=== PATIENT | female | born 1965 | race Caucasian/White ===

== ENCOUNTER 2017-09-10 08:16 | Outpatient (RCR) | payer BC, SELFPAY ==
--- NOTE | 2017-09-10 10:33 | BH.SGPN ---
Service Group Progress Note - Session Psychotherapy Session #1 Date Open:: 09/10/17 - 6 group members Time Started:: 09:05 Time Stopped:: 10:05 Targeted Problem #:: 1 Type of Group:: Process Goal of Group:: The goal of today's group was to check-in with client's mood, stressors, and positives, review homework and introduce topic for the day. Client Response/Progress/Benefit:: Client responded well to session, first day in PHP, receptive to peer support. Client reports feeling very anxious today coming to the program. Client shared she was diagnosed with bipolar disorder 18 years ago and has overall been able to cope and manage her symptoms with the help of medication, but recently had a setback. Client shared it's like I forgot how to cope. Client stated she would like to work on reinforcing healthy coping skills and reduce anxiety. Client reported she has few mental health supports which negatively impacts client's functioning as her will tell her to just get over it. Therapist informed client about family sessions offered in the program. Client appeared to benefit from receiving supportive statements from peers and coming to group despite high anxiety. Client to continue PHP to promote mood stability and prevent decompensation. Eye Contact:: Good Motor Activity:: Appropriate Appearance:: Neat Speech:: Appropriate Mood:: Anxious, Dysthymic Affect:: Congruent - client became tearful Thoughts:: Racing, No evidence of hallucinations/delusions noted Staff Interventions:: Therapist used open-ended questions to elicit information about client's current stressors and mood state. Therapist was supportive by using active listening and reflection.
--- NOTE | 2017-09-11 11:20 | BH.SGPN ---
Service Group Progress Note - Session Psychotherapy Session #1 Date Open:: 09/11/17 Time Started:: 09:06 Time Stopped:: 10:06 Targeted Problem #:: 1 Type of Group:: Process Goal of Group:: The goal of today's group was to check-in with client's mood, stressors, and positives, review homework and introduce topic for the day. Client Response/Progress/Benefit:: Client reported she was overwhelmed yesterday because of an arguement she had with her . Client shared she attempted to focus on self-care yesterday by getting a pedicure and hair cut. On her way home she shared she stopped to cone picker food for herself and , but when she got home with the food he was very upset with her for spending the money. Client reported she became very anxious during the arguement so she whent on a walk to help herself calm down. Client able to note she made a positive choice by taking a walk. Progress noted by client utilizing healthy coping skill in yanique moment as well as putting forth effort to focus on self-care. Eye Contact:: Fair Motor Activity:: Restless Appearance:: Casual Speech:: Rapid Mood:: Anxious Affect:: Constricted Thoughts:: Linear, Logical, No evidence of hallucinations/delusions noted Staff Interventions:: Therapist used open-ended questions to elicit information about client's current stressors and mood state. Therapist was supportive by using active listening and reflection.
--- NOTE | 2017-09-11 11:23 | BH.SGPN_ITS ---
Service Group Progress Note - Session Psychotherapy Session #1 Date Open:: 09/11/17 Time Started:: 09:06 Time Stopped:: 10:06 Targeted Problem #:: 1 Type of Group:: Process Goal of Group:: The goal of today's group was to check-in with client's mood, stressors, and positives, review homework and introduce topic for the day. Client Response/Progress/Benefit:: Client reported she was overwhelmed yesterday because of an arguement she had with her . Client shared she attempted to focus on self-care yesterday by getting a pedicure and hair cut. On her way home she shared she stopped to continuous pickling line pickler food for herself and , but when she got home with the food he was very upset with her for spending the money. Client reported she became very anxious during the arguement so she whent on a walk to help herself calm down. Client able to note she made a positive choice by taking a walk. Progress noted by client utilizing healthy coping skill in yanique moment as well as putting forth effort to focus on self- care. Eye Contact:: Fair Motor Activity:: Restless Appearance:: Casual Speech:: Rapid Mood:: Anxious Affect:: Constricted Thoughts:: Linear, Logical, No evidence of hallucinations/delusions noted Staff Interventions:: Therapist used open-ended questions to elicit information about client's current stressors and mood state. Therapist was supportive by using active listening and reflection.
--- NOTE | 2017-09-11 13:37 | BH.SGPN_ITS ---
Service Group Progress Note - Session Psychotherapy Session #2 Date Open:: 09/11/17 - 6 group members Time Started:: 10:18 Time Stopped:: 11:08 Targeted Problem #:: 1 Type of Group:: Illness Management Goal of Group:: To increase understanding of pitfalls and impact can have on mental health Client Response/Progress/Benefit:: Client responded well to session, passive participant at times. Client appeared to connect with the quote, nodding to peers? comments. Client stated pitfalls are barriers to success and bad habits. Client reported depression, unrealistic expectations, and negative thinking can make someone vulnerable to pitfalls. Client reported pitfalls can lead to more severe mental health symptoms, if one does not have awareness of how to overcome them. Client appeared to benefit from gaining awareness of how pitfalls impact mental health. Client?s second day of PHP, to continue to promote emotional regulation and mood stability. Eye Contact:: Good Motor Activity:: Appropriate Appearance:: Neat Speech:: Appropriate Mood:: Anxious Affect:: Constricted Thoughts:: Linear, No evidence of hallucinations/delusions noted Staff Interventions:: Therapist facilitated discussion about pitfalls and assisted group in identifying common pitfalls that can set you back. Therapist led group in an activity to help group understand impact pitfalls can have on oneself and identify strategies that could help you get back on the right path. Therapist provided support by using active listening and providing feedback. Psychotherapy Session #3 Date Open:: 09/11/17 - 6 group members Time Started:: 11:16 Time Stopped:: 12:15 Targeted Problem #:: 1 Type of Group:: Functional Skills Development Goal of Group:: To identify personal pitfalls and what keeps them stuck from moving forward Client Response/Progress/Benefit:: Client responded well to session, active participant. Client identified personal pitfalls of hers as impulsive behavior, no boundaries, avoiding places and people, anxiety, and seeking reassurance from others. Client reported her patterns of self-sabotage, especially with work , continues to keep client stuck. Client was receptive to emotional support given by peers. Client helped the group identify strategies to overcome and prevent pitfalls such as creating a crisis plan, using DDD, being self-aware, and using mindfulness. Client appeared to benefit from increasing awareness of personal pitfalls and identifying strategies to overcome them. Progress noted as client verbalized stressors with peers and challenged unhelpful behaviors. Eye Contact:: Good Motor Activity:: Appropriate Appearance:: Neat Speech:: Appropriate Mood:: Anxious Affect:: Congruent - became tearful Thoughts:: Linear, No evidence of hallucinations/delusions noted Staff Interventions:: Therapist facilitated activity in which group members were given the task to identify personal pitfalls and what keeps them stuck from moving past the pitfall. Therapist provided group members with the homework assignment of identifying strategies that can help them overcome pitfalls.
--- NOTE | 2017-09-12 14:49 | BH.MDN ---
Multi-Disciplinary Note - Note 60-min Individual Time Started:: 12:37 Date: 09/12/17 Eye Contact:: Good Motor Activity:: Appropriate Appearance:: Casual Speech:: Appropriate Mood:: Dysthymic Affect:: Congruent Thoughts:: Linear, Logical, No evidence of hallucinations/delusions noted Time Stopped:: 13:27
--- NOTE | 2017-09-12 14:53 | BH.MDN_ITS ---
Multi-Disciplinary Note - Note 45-min Individual Time Started:: 12:45 Date: 09/10/17 Purpose of session/treatment goals addressed:: The purpose of this session was to begin building rapport with Client as well as gather additional information regarding perception current symptoms, stressors, and means for coping. Another purpose was to begin treatment goal planning. Eye Contact:: Good, Other - Client often averted eye contact when discussing events leading to IOP admission. Motor Activity:: Appropriate Appearance:: Casual, Other - red and tearful throughout Speech:: Rambling Mood:: Anxious, Depressed Affect:: Congruent Thoughts:: Linear, Logical, Racing, No evidence of hallucinations/delusions noted Staff Interventions:: Therapist asked open-ended and clarifying questions to gather information regarding client current symptoms, stressors, identified supports, and current means for coping. Used reflective listening, provided encouragement, and responded empathically as Client discussed circumstances leading to admission. Used motivational-interviewing techniques to begin identifying Client motivations to change and goals for treatment. Provided Client with goal reflection activity to complete as homework. Client Response:: Client responded well to session and reports that her first day in [facility] went better than expected but that she is still adjusting to the group dynamics. Client discussed feelig overwhelmed recently and not knowing what to do to best aid in managing mental health symptoms. She discussed how depression and anxiety manifests for her and the specific symptoms she experiences. Client shared that her depression often includes increased negative thinking, low energy, a lack of enjoyment in activities she previously enjoyed, fleeting thoughts of , and increased sadness. Client further indicated feeling increasingly anxious and on edge following her shift at work which often results in increased irritability towards her . CLient discussed periods of lashing out in which she experiences increased road rage and high-risk behaviors. She discussed the events leading up to referal for admission to the IOP program by Client outpatient psychiatrist, Dr. Hutton. Client shared that this time of year is always a trigger for her as she has experienced multiple losses around this time of year. Client indicated that she believes she has never truly allowed herself to grieve which has impacted her later in life. Client reports engaging in high risk behaviors 1 month ago following a one night affair. Client indicates engaging in a suicidal gesture via putting a gun to her head because of the guilt associated with the affair. She denies any suicide intent and indicates that her kim and her son as preventative factors. Client semi-receptive to discussing gun safety and indicated willingness to keep the gun out of reach and with the safety on. Began treatment goal planning. Omari specifically indicates a desire to improve healthy coping skills and ability to manage her emotions. Risks/Concerns:: Client denies any active suicidal ideations, plan, or intent. Reports that she had fleeting thoughts of one month prior when she engaged in a suicidal gesture via place a gun to her head; however, denied intent at the time indicated wanting to cause the person who she had an affair with emotional distress. CLient reports that her son and kim are major protective factors. She is able to indicate ability to maintain safety. Future- oriented. Client open to discussing gun-safety and shared willingness to place firearm out of reach as well as with the safety on. Progress Toward Goals/Plan:: Client new to IOP program, however appears to be adjusting well to the treatment environment. Client expressed that she is comfortable in the group setting and is feeling less ambivalent towards receiving group therapy. Client indicates enjoying the group activities and openness of the other participants. She expressed plans to continue to engage in the program and is open to trying new ways for managing mental health symptoms. Client indicates main goals for treatment include learning skills for better managing her emotions and coping with feelings of guilt associated with events leading to admission. Time Stopped:: 13:35
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
--- NOTE | 2017-09-12 14:53 | BH.SGPN ---
Service Group Progress Note - Session Psychotherapy Session #3 Date Open:: 09/12/17 Time Started:: 11:23 Time Stopped:: 12:20 Targeted Problem #:: 1 Type of Group:: Functional Skills Development - 6 participants Goal of Group:: To identify the challenges associated with making change and identify positive outcomes that have resulted from changes made in past. Another goal was to identify one change they are willing to make this week. Staff Interventions:: Therapist led group in an activity to help group members recognize the challenges associated with change. Therapist utilized activity as a tool to identify ways to manage changes and adapt to the challenges that ensue. Therapist facilitated group discussion about positive outcomes from change. Therapist helped clients explore changes they are willing to make this week and elicited discussion on the pros and cons of making that change.
--- NOTE | 2017-09-13 09:58 | BH.SGPN_ITS ---
Service Group Progress Note - Session Psychotherapy Session #1 Date Open:: 09/12/17 Time Started:: 09:10 Time Stopped:: 10:00 Type of Group:: Process - 6 group members Goal of Group:: The goal of today's group was to check-in with client's mood, stressors, and positives, and review homework. Client Response/Progress/Benefit:: Active participant in group discussion. Emotion for today is numb. Shared with the group conflict and poor communication. Reports conversations in which she percieves her as being condenscending. She reports several attempts to have conversations based on thier relationship and her emotions and fells that all he does is put me down. She reprots that while this may seem negative, however she is making an effort to be assertive. Group provided support, praise, and feedback which she benefited from. Progress noted as she is not avoiding or being passive in her wants. Will continue in IOP to maintain safety, improve functioning, and stabilze mood. Eye Contact:: Fair Motor Activity:: Restless Appearance:: Casual Speech:: Appropriate Mood:: Anxious, Depressed Affect:: Congruent Thoughts:: Linear, Logical, No evidence of hallucinations/delusions noted Staff Interventions:: Therapist used open-ended questions to elicit information about client's current stressors and mood state. Therapist was supportive by using active listening and reflection. Psychotherapy Session #2 Date Open:: 09/12/17 Time Started:: 10:20 Time Stopped:: 11:10 Type of Group:: Illness Management - 7 group members Goal of Group:: To increase understanding and awareness of emotions connected to change and the impact those emotions can have on change. Client Response/Progress/Benefit:: Active participant in group activity and discussion. Worked with peers in the group to identify common emotions related to change which include; fear, anxiety, lost, torn, enthusiastic, sadness, etc. Able to see the positives to change stating I need change it helps me grow. Responded well to education on the process or stages of change. Benefited from increased awareness and education. Eye Contact:: Fair Motor Activity:: Restless Appearance:: Casual Speech:: Appropriate Mood:: Anxious, Depressed Affect:: Congruent Thoughts:: Linear, Logical, No evidence of hallucinations/delusions noted Staff Interventions:: Therapist facilitated group discussion about change. Therapist led the group in an activity in which the activity was utilized as a tool to increase client?s awareness of emotions connected with change. Therapist led the processing of how each emotion was associated with change. Therapist also educated clients on the stages of change and discussed emotions associated with each stage. Therapist was supportive by providing feedback and using reflective listening.
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
--- NOTE | 2017-09-13 11:37 | BH.NA ---
Physical Data - Vital Signs Pulse Rate: 76 Respiratory Rate: 14 Blood Pressure: 132/83 - Height/Weight Height: 1.78 m Weight:: 123.377 kg Weight in Pounds: 272.0 lbs Current Medication Compliance - Medication Compliance Do you take your medication as prescribed?: Yes Do you need assistance with taking medication?: No Have you had side effects from medication?: No Nutritional History - Appetite Nutritional Instructions:: If client shows signs of a swallowing problem, weight change of 10 pounds or more in the last month, or is on a diabetic diet, the physician will review and request a dietitian consult, as appropriate. All unintentional weight loss will be referred to the physician for decision on need for dietitian consult. Describe your appetite:: Good Have you noticed a change in your eating habits lately?: Yes - has been eating more with increased Sx, 20# wt gain in 4 mo. Additional nutritional information:: Drinks approx a pot of coffee daily - excessive caffiene use Functional Assessment - Sleep Pattern Describe any problems with sleeping: Client endorses some interruptions in her sleep associated with nocturia. - Activities Motor Activity:: Functional Sensory/Communication Assess - Vision Problems Do you have any vision problems?: Glasses - Hearing Problems Do you have any hearing problems?: Adequate - Communication Problems Do you have difficulty understanding what people are saying?: No Do you have trouble putting your thoughts into words or expressing what you want to say?: No Do people ever have trouble understanding what you say?: No What is your primary language?: Grenadian Learning Assessment - Learning Barriers Learning Barriers:: Ready to learn Medical Problems/History - Cardiac Conditions Cardiovascular: Hypertension, Hyperlipidemia - Genitourinary Conditions Genitourinary: Nocturia - Metabolic Conditions Metabolic: Diabetes - type 2 - Gastrointestinal Conditions Gastrointestinal: Dyspepsia - GERD - Musculoskeletal Conditions Musculoskeletal: Arthritis - rheumatoid - Pain Assessment Do you have acute or chronic pain?: No - Female Reproductive Do you think you may be ?: No Number of pregnancies:: 2 Number of children:: 1 :: 1 - SAB Surgical History - Surgical History Have you had any surgeries? If so, list type and date:: No Substance Abuse - Substance Abuse Please describe substance abuse in the last 30 days:: Client endorses rare ETOH use. She is a former tobacco user, with 30-35 pack year history. Denies any illicit substance use. Mental Status Summary - Mental Status Significant Findings/Observations on Appearance and Mood:: Client is A&Ox4, cooperative with interview, casually dressed with appropriate grooming and hygiene, and exhibits normal activity. Good eye contact. Speech is clear and of normal rate and volume. Mild depression and anxiety, mood congruent affect. Logical associations. Normal process. Average knowledge. No symptoms of delusions. Denies HI and hallucinations. She has had intermittent SI without plan or intent. Suicide Assessment - Suicidal Ideation Are you currently or have you been suicidal in the past?: Yes Suicidal Intentional Rating Scale (SIRS): Suicidal thoughts (past) Physician Notification: If Active suicidal thoughts/Will not contract for safety is checked, contact physician and document in the Physician Notification section below. Assault History/Potential - History of Assault Do you have a history of assaulting someone?: No Physician Notification: If yes, notify physician and document notification date and time below. Past Psychiatric History - MH Treatment Hx Age of first mental health symptoms: 29 years old Describe (age, circumstance, etc) any past hospitalizations: N/A Fall Risk Assessment - Age Age: Less than 60 - Mental Status Mental Status: Willing & able to ask for assistance when needed - Physical Status Physical Status: No problems - Impairments Impairments: None - Elimination Elimination: Continent AND independent - Gait or Balance Gait or Balance: Walks independently - Hx of Falls History of falls in the past 6 months: No known history - Medications/Substances Psychotropics:: Antidepressants, Mood stabilizers Others:: Antihypertensives Medications/substances used within the past 24 hours or ordered to administer: 3 or more of the medications/substances listed above - Total Score Total Points:: 2 Physician Notification - Physician Notification Physician Notified: Anayeli Sanchez Method of Notification: Face to Face RN Summary of Impressions - Impressions Recommendations: Include psychiatric and medical issues, treatment planning recommendations, and discharge planning needs. Impressions: Psychiatric Issues: bipolar, ?borderline, self-harm behaviors - Level of Care How do the client's current symptoms and functional deficits support need for this level of care?: Client describes decompensation of her symptoms for 2-3 weeks prior to starting in the PHP program. She notes that she has been engaging in self-harm activities, having SI, and abusing alcohol as a result of her labile moods. She feels as though her moods are out of control, she is irritable, anxious, impulsive, and often tearful. Client also endorses isolation. Her mood dysregulation is causing conflict at work and in her marriage. She notes that the anniversary of her grandfather's suicide and a spontaneous miscarriage have recently passed, and these greatly contributed to her increased psychiatric symptoms. PHP will promote gains, provide social support, and prevent further decompensation.
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
--- NOTE | 2017-09-13 14:09 | BH.DR.ITP ---
Initial Treatment Plan - Patient Information Visit Information: ADMISSION DATE: EXPECTED LOS: 4-6 weeks Diagnoses:: Bipolar disorder F 31.9. Borderline personality disorder - Problems/Symptoms Problem #1:: Mood instability-mixed mood symptoms Symptom:: depression, recent suicidal thoughts, irritability, biologic disruption of appetite Problem #2:: Anxiety Symptom:: Rumination Problem #3:: Emotional dysregulation
--- NOTE | 2017-09-16 16:38 | BH.MDN ---
Multi-Disciplinary Note - Note 60-min Individual Time Started:: 12:30 Date: 09/16/17 Eye Contact:: Good Motor Activity:: Appropriate Appearance:: Neat, Casual Speech:: Appropriate Mood:: Anxious, Irritable, Depressed Affect:: Full Thoughts:: Racing, No evidence of hallucinations/delusions noted Time Stopped:: 13:30
--- NOTE | 2017-09-16 16:45 | BH.SGPN ---
Service Group Progress Note - Session Psychotherapy Session #1 Date Open:: 09/16/17 Time Started:: 09:09 Time Stopped:: 10:19 Targeted Problem #:: 1 Type of Group:: Process - 7 participants Goal of Group:: The goal of today's group was to check-in with client's mood, stressors, and positives, review homework and introduce topic for the day. Client Response/Progress/Benefit:: Client engaged in session and was able to actively participate in processing her thoughts, feelings, and frustrations. She discussed frustrations in continuing to struggle with symptoms of depression. Client shared that her weekend had been up and down as she had a positive experience with a friend but struggled with anger towards her . CLient went on to describe spending St morning with a friend and explained that she had told her friend they would not have time to go get lunch as client was planning to do things with her later in the day. CLient indicated that she had a positive experience shopping with the friend but felt drained afterwards which resulted in client napping. CLient indicated guilt about not accomplishing more but told herself she would wait for her to get home so they could work on the to-do list together. Client shared that she had stepped back out while waiting and missed her return home before he headed out for a bike ride. She expressed the miscommunication resulted in an argument as client felt her had ignored their plans to spend time together. Client beefitted from processing further with the group and responded well to the supportive feedback they had provided. She did well to identify that although she had felt good about expressing her frustrations to her , she could have probably communicated this i a calmer way. Client displaying progress in her engagement and would benefit from further working to regulate emotions. Eye Contact:: Fair Motor Activity:: Appropriate Appearance:: Casual Speech:: Appropriate Mood:: Depressed Affect:: Congruent Thoughts:: Linear, Logical, No evidence of hallucinations/delusions noted Staff Interventions:: Therapist used open-ended questions to elicit information about client's current stressors and mood state. Therapist was supportive by using active listening and reflection.
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
--- NOTE | 2017-09-17 13:35 | BH.MDN ---
Multi-Disciplinary Note - Note 45-min Individual Time Started:: 12:35 Date: 09/17/17 Eye Contact:: Good Motor Activity:: Restless Appearance:: Neat, Casual Speech:: Appropriate Mood:: Euthymic, Anxious Affect:: Full Thoughts:: Linear, Logical, No evidence of hallucinations/delusions noted Time Stopped:: 13:26
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
--- NOTE | 2017-09-17 16:56 | BH.DS ---
Discharge Summary - Demographics Date of Admission:: 09/10/17 Discharge Date: 09/17/17 - Treatment Discharge Handout: Complete Discharge Handout with client on aftercare options and continuity of care.
--- NOTE | 2017-09-18 10:41 | BH.SGPN_ITS ---
Service Group Progress Note - Session Psychotherapy Session #2 Date Open:: 09/17/17 Time Started:: 10:20 Time Stopped:: 11:10 Targeted Problem #:: 1 Type of Group:: Illness Management Goal of Group:: The goal of today?s group is to identify how emotions can impact our communication skills, and why it is important to be able to communicate in stressful situations. Client Response/Progress/Benefit:: Pt listened attentively listened to others, often was quiet but at times did share thoughts and feelings during discussion. Pt reported she does not do very well with regulating her emotions, unless she is at work. Pt shared she believes she can regulate her emotions at work better because of the potential consequence of getting fired. Pt reported with others outside of work she is more likely to go off because struggles with managing her emotions. Pt seemed to benefit from learning about self regulation. Eye Contact:: Good Motor Activity:: Appropriate Appearance:: Casual Speech:: Appropriate Mood:: Dysthymic Affect:: Congruent Thoughts:: Linear, Logical, No evidence of hallucinations/delusions noted Staff Interventions:: Therapist led an experiential activity where group members worked together for a common goal, but with adaptations made on how members were able to communicate with one another. Therapist used open-ended questions to elicit group discussion about emotions which arose during activity , as well as identifying how emotions experienced impacted ability to communicate effectively with other group members. Psychotherapy Session #3 Date Open:: 09/17/17 Time Started:: 11:20 Time Stopped:: 12:15 Targeted Problem #:: 1 Type of Group:: Functional Skills Development Goal of Group:: The goal of todays group was to increase awareness of different states of alertness attached to emotions and identifying healthy coping strategies for each state of alertness. Client Response/Progress/Benefit:: Pt contributed to discussion and listened attentively to others. Pt able to work with group to identify various emotions for each of the zones. Pt recognizes she needs to be more open to allowing others to support her by communicating how she feels and accepting help. Pt reported she will use today's topic in her daily life by using her different tool boxes to help her regulate self into preferred emotional zone. Seemed to benefit from identifying coping strategies for each emotional zone. Eye Contact:: Good Motor Activity:: Appropriate Appearance:: Casual Speech:: Appropriate Mood:: Dysthymic Affect:: Congruent Thoughts:: Linear, Logical, No evidence of hallucinations/delusions noted Staff Interventions:: Therapist facilitated group by teaching about the 4 zones of different states of alertness and helping clients connect emotions to each zone based on state of alertness. Therapist assisted clients with identifying healthy coping strategies that would be best utilized based on the state of alertness. Therapist provided support by using active listening and providing feedback.
--- NOTE | 2017-11-11 12:21 | BH.SGPN_ITS ---
Service Group Progress Note - Session Psychotherapy Session #2 Date Open:: 09/16/17 Time Started:: 10:25 Time Stopped:: 11:15 Targeted Problem #:: 1 Type of Group:: Illness Management Goal of Group:: To increase understanding how positive and negative forces in life can impact balance in life. Client Response/Progress/Benefit:: Client recpetive to group as shown by contributions to discussion and attentive to others. Client reported she could relate to the quote because sometimes she wants to take a nap and hope everything will be better, but recognizes that she has to put forth some effort in order for personal growth to occur. When processing activity client connected importance of challenging negative thinking, using her support system , and not giving up when things get challenging. Client seemed to benefit from increasing awareness of how positive and negative forces can impact personal growth and progress. Eye Contact:: Fair Motor Activity:: Appropriate Appearance:: Casual Speech:: Appropriate Mood:: Depressed Affect:: Congruent Thoughts:: Linear, Logical, No evidence of hallucinations/delusions noted Staff Interventions:: Therapist facilitated group discussion about the various forces of life and helped clients connect the impact they have on balance in life. Therapist led group in an experiential activity in which group members had to work together to balance an object and move it to a designated location. Therapist utilized the activity as a tool to process the challenges connected with balancing various forces. Psychotherapy Session #3 Date Open:: 09/16/17 Time Started:: 11:20 Time Stopped:: 12:15 Targeted Problem #:: 1 Type of Group:: Functional Skills Development Goal of Group:: To identify positive and negative forces in life and identify which forces are helping stability and which forces are contributing to instability. Client Response/Progress/Benefit:: Client active participant AEB contributions to discussion and engagement with others. Client identified her positive forces to include: healthy communication, self-care, spirituality, working with others , and encouraging thoughts. Client shared negative forces to include: physical pain, self-doubt, pretending she is okay, risky behavior, negative thinking and negative people. Client reported pretending everything is okay as her strongest force that is contributing to her staying stuck. Recognizes by pretending everything is good she isn't working or focusing on what could help her make forward progress. Client seemed to benefit from increasing awareness of her positive and negative forces. Eye Contact:: Fair Motor Activity:: Appropriate Appearance:: Casual Speech:: Appropriate Mood:: Depressed Affect:: Congruent Thoughts:: Linear, Logical, No evidence of hallucinations/delusions noted Staff Interventions:: Therapist provided group with an example of a scenario of a person and the individuals positive and negative forces. Therapist provided each group member with a worksheet in which they were to identify five positive and five negative forces in their life. Therapist processed the activity with the group, helping others connect the impact certain forces have on their life balance.
[2017-11-22 15:46] VITALS: BP 132/83; PULSE 76; RESP 14
== END 2017-09-17 14:00 | disposition home or self-care (01) ==
LOC: BHPHP 08:16
PROVIDERS: Visit Provider Psychiatry & Neurology Psychiatry
DX: F31.9 Bipolar disorder, unspecified (principal); F41.9 Anxiety disorder, unspecified; F60.3 Borderline personality disorder; Z79.899 Other long term (current) drug therapy; I10 Essential (primary) hypertension; E78.00 Pure hypercholesterolemia, unspecified; E11.9 Type 2 diabetes mellitus without complications; Z79.4 Long term (current) use of insulin; M06.9 Rheumatoid arthritis, unspecified
CPT/HCPCS: H0035; 90834; 90837; G0410

== ENCOUNTER 2017-09-20 09:00 | Outpatient (RCR) | payer BC, SELFPAY ==
--- NOTE | 2017-09-20 10:37 | BH.SGPN ---
Service Group Progress Note - Session Psychotherapy Session #1 Date Open:: 09/20/17 Time Started:: 09:10 Time Stopped:: 10:00 Type of Group:: Process - 6 group members Goal of Group:: The goal of today's group was to check-in with client's mood, stressors, and positives, and review homework. Client Response/Progress/Benefit:: Active participant in group discussion. Emotion for today is excited. Shared that she was ill however has kept busy, which she reports helps her mood. Talked at length again regarding conflicts with her . Reports poor communication, howevere she is trying to work on thier relationship. She believes this is a positive step as in the past she would just avoid her as she had given up. Reports being frustrated stating being at home is very depressing. She states that she is excited to be back in the program and working on her mental health. Benefited from group feedback and support. Progress noted. This is first day in IOP. Will continue in IOP to maintain safety, prevent decompensation, increase daily functioing, and stabilize mood. Eye Contact:: Fair Motor Activity:: Restless Appearance:: Casual Speech:: Rapid Mood:: Anxious Affect:: Congruent Thoughts:: Linear, Logical, No evidence of hallucinations/delusions noted Staff Interventions:: Therapist used open-ended questions to elicit information about client's current stressors and mood state. Therapist was supportive by using active listening and reflection.
--- NOTE | 2017-09-20 14:03 | PCM.PN.BLA ---
Progress Note This is an addendum to the history and physical of September 13, 2017 Patient is seen in follow-up for bipolar disorder of 31.9-mixed mood symptoms, anxiety unspecified, borderline personality disorder. History is been obtained per interview with patient, discussion with staff, review of chart. Case discussed with treatment team. Chief complaint-depression and anxiety-doing okay. Interim history Moderate depressive symptoms persist but of decreased intensity over the past week. Notes a mild increase in energy. Continues to have moderate irritability especially in situations involving her . Recognizes that the irritability is localized to home situations. Denies road rage. Ongoing generalized ruminative anxiety. Reports an episode of restlessness 2 days ago which resolved with Atarax. Unclear if this is secondary to anxiety or akathisia secondary to the increased Abilify. No suicidal or homicidal ideation. No symptoms consistent with psychosis. Sleeping from 9:30 PM to 6 AM. Noncompliant with CPAP. Appetite fair. Episode of nausea and vomiting on Saturday likely secondary to GERD and now resolved. Compliant with medications including Abilify 15 mg daily, Zoloft 50 mg daily, BuSpar 15 mg daily, melatonin 10 mg nightly, and Klonopin 0.5 mg as needed. Denies adverse effects to reduce Zoloft. Mental status exam Alert and oriented . No acute distress. Ambulatory with normal gait and station. Appears stated age. Casually dressed and groomed. Appropriate hygiene. Cooperative with interview. Good eye contact. No psychomotor agitation or retardation. Mood depressed improved. Affect congruent. Speech is clear and with regular rate and rhythm. Language fluent. Thought process organized. Associations logical. Thought content significant for ruminative anxiety and themes of depression. No suicidal or homicidal ideation related or detected.. No symptoms consistent with psychosis noted or detected. Immediate recent and remote memory grossly intact. Attention and concentration are fair. Estimated intelligence and fund of knowledge average. Judgment and insight improving Diagnosis Bipolar disorder F 31.9-mixed mood symptoms Anxiety unspecified Borderline personality disorder Plan Patient has made progress in [facility] and is appropriate for discharge from [facility] and admission to [facility]. Ongoing treatment in a structured setting is necessary to maintain gains and prevent decompensation. Risks benefits alternatives of medications discussed with patient. Patient acknowledges understanding. Continue Abilify 15 mg daily. Continue Zoloft 50 mg daily. Continue BuSpar 15 mg daily. Limit Klonopin use. May use hydroxyzine as needed. Prescription provided for Cogentin 0.5 mg p.o. twice daily as needed restlessness. 18 minutes of Insight oriented psychotherapy provided. Continue follow-up with Dr. Hutton. Patient acknowledges understanding and is in agreement with plan. Feels able to maintain safety. Agrees to seek help or emergency care if feeling unsafe to self or others.
--- NOTE | 2017-09-20 14:10 | PN_ITS ---
Progress Note This is an addendum to the history and physical of September 13, 2017 Patient is seen in follow-up for bipolar disorder of 31.9-mixed mood symptoms, anxiety unspecified, borderline personality disorder. History is been obtained per interview with patient, discussion with staff, review of chart. Case discussed with treatment team. Chief complaint-depression and anxiety-doing okay. Interim history Moderate depressive symptoms persist but of decreased intensity over the past week. Notes a mild increase in energy. Continues to have moderate irritability especially in situations involving her . Recognizes that the irritability is localized to home situations. Denies road rage. Ongoing generalized ruminative anxiety. Reports an episode of restlessness 2 days ago which resolved with Atarax. Unclear if this is secondary to anxiety or akathisia secondary to the increased Abilify. No suicidal or homicidal ideation. No symptoms consistent with psychosis. Sleeping from 9:30 PM to 6 AM. Noncompliant with CPAP. Appetite fair. Episode of nausea and vomiting on Saturday likely secondary to GERD and now resolved. Compliant with medications including Abilify 15 mg daily, Zoloft 50 mg daily, BuSpar 15 mg daily, melatonin 10 mg nightly, and Klonopin 0.5 mg as needed. Denies adverse effects to reduce Zoloft. Mental status exam Alert and oriented . No acute distress. Ambulatory with normal gait and station. Appears stated age. Casually dressed and groomed. Appropriate hygiene. Cooperative with interview. Good eye contact. No psychomotor agitation or retardation. Mood depressed improved. Affect congruent. Speech is clear and with regular rate and rhythm. Language fluent. Thought process organized. Associations logical. Thought content significant for ruminative anxiety and themes of depression. No suicidal or homicidal ideation related or detected.. No symptoms consistent with psychosis noted or detected. Immediate recent and remote memory grossly intact. Attention and concentration are fair. Estimated intelligence and fund of knowledge average. Judgment and insight improving Diagnosis Bipolar disorder F 31.9-mixed mood symptoms Anxiety unspecified Borderline personality disorder Plan Patient has made progress in [facility] and is appropriate for discharge from [facility] and admission to [facility]. Ongoing treatment in a structured setting is necessary to maintain gains and prevent decompensation. Risks benefits alternatives of medications discussed with patient. Patient acknowledges understanding. Continue Abilify 15 mg daily. Continue Zoloft 50 mg daily. Continue BuSpar 15 mg daily. Limit Klonopin use. May use hydroxyzine as needed. Prescription provided for Cogentin 0.5 mg p.o. twice daily as needed restlessness. 18 minutes of Insight oriented psychotherapy provided. Continue follow-up with Dr. Hutton. Patient acknowledges understanding and is in agreement with plan. Feels able to maintain safety. Agrees to seek help or emergency care if feeling unsafe to self or others.
--- NOTE | 2017-09-20 14:11 | BH.DR.ITP ---
Initial Treatment Plan - Patient Information Visit Information: ADMISSION DATE: EXPECTED LOS: 4-6 weeks Diagnoses:: Bipolar disorder F 31.9-mixed mood symptoms. Borderline personality disorder - Problems/Symptoms Problem #1:: Mood instability, mixed mood symptoms Symptom:: Depression, decreased energy, anhedonia, irritability Problem #2:: Anxiety Symptom:: Rumination
--- NOTE | 2017-09-20 14:40 | BH.SGPN ---
Service Group Progress Note - Session Psychotherapy Session #3 Date Open:: 09/20/17 - 6 group members Time Started:: 11:23 Time Stopped:: 12:13 Targeted Problem #:: 1 Type of Group:: Functional Skills Development Goal of Group:: To identify what contributes positively and negatively to conflict and appropriate ways to manage conflict with others. Client Response/Progress/Benefit:: Client responded well to session, active participant. Client reported she often focuses on others needs when dealing with conflict which leads to client not getting her needs met and feelings of frustration. Client shared she tried to be more assertive and cooperative in the activity to help resolve conflict. Client helped the group identify strategies to improve conflict resolution such as having awareness of emotions and body language, attacking the problem not the person, and taking breaks to promote emotional regulation before addressing a problem. Client appeared to benefit from learning various conflict resolution strategies. Client has shown progress with increasing awareness of warning signs and triggers per her report. Client to continue IOP to promote emotional regulation and mood stability. Eye Contact:: Good Motor Activity:: Appropriate Appearance:: Casual Speech:: Appropriate Mood:: Euthymic Affect:: Congruent Thoughts:: Linear, Logical, No evidence of hallucinations/delusions noted Staff Interventions:: Therapist facilitated group activity in which group members were provided with materials and had to eliminate certain items with consensus from group. Therapist processed activity, helping clients connect throughout activity strategies each person used to manage conflict. Therapist led discussion about what contributes to conflict in a positive or negative manner. Therapist facilitated discussion about conflict resolution strategies and provided group member with a handout about effective ways to manage conflict.
--- NOTE | 2017-09-24 10:34 | BH.MDN ---
Multi-Disciplinary Note - Note 45-min Individual Time Started:: 09:11 Date: 09/24/17 Purpose of session/treatment goals addressed:: The purpose of this session was to process with Client her return to work and associated stressors as well as review Client identified healthy coping and calming skills she may utilize during times of increased stress and anxiety. Another purpose was to discuss with Client frustrations related to miscommunication with her , review concept of effective communication, and begin to review strategies Client may implement when communicating her emotions with her . Eye Contact:: Good Motor Activity:: Appropriate Appearance:: Casual Speech:: Appropriate Mood:: Dysthymic Affect:: Congruent Thoughts:: Linear, Logical, No evidence of hallucinations/delusions noted Staff Interventions:: Therapist asked open-ended questions to explore current symptoms and stressors following her return to work. Used strengths-based approach to aid Client in identifying areas of progress in applying treatment skills learned. Used reflective listening and empathic responses as CLient discussed current frustrations and difficulties regulating emotion related to communicating with . Provided psychoeducation on effective communication and worked with CLient to identify potentially helpful communication strategies she may implement with her . Client Response:: Client responded well to session and remained actively engaged throughout. 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 Client went on to discuss that her boss had expressed support and encouragement when Client had originally requested time off for treatment; however, now seemed to be pressuring CLient about how much time she was taking off. Client attributes this to her boss misunderstanding the projected length of the program. She shared that this had initially impacted her mood but that she is trying to refrain from ruminating and remind herself to focus on what is within her control as her boss' response is not. CLient expressed otherwise being excited to return to the routine of regular employment. She went on to share increased difficulties with managing emotions over the weekend and described increased anxiety and irritability. CLient reports having several nighttime panic attacks between Saturday and Saturday, which she had significant difficulties in managing. CLient indicated not being able to identify a specific trigger and denied experiencing any significant stressors that may have contributed to panic. CLient reports contacting her PCP who increased Zoloft rx from 5omg to 100mg. Client notes feeling improved today. She went on to share additionally struggling with irritability when trying to communicate thoughts, feelings, and emotions with her . She appears to have some insight into her own use of maladaptive communication and described I just wait until everything bottles up and I explode. I know I probably shouldn't do that. She shared often becoming triggered by how her responds to questions and was open to discussing with ways in which he could use alternative approaches or language to ask her things. CLient additionally described lack of communication as a major form of tension. She worked with therapist to identify ways to improve communication and indicated connecting most with implementing regular check-in's throughout the day to ensure that they are on the same page. Risks/Concerns:: No risk or concerns at this time. Client denies suicidal ideation, plan, and intent as of 09/24/17. Denies HI. She is future oriented and indicates plans to visit her son this weekend and go into work tonight. Client aware of and willing to access local crisis resources should she feel unable to maintain safety of self or others. Progress Toward Goals/Plan:: Some progress. CLient continues to display motivation to change and is regular with attendance. She is well engaged in both individual and group sessions and provides input and encouragement to the group. Client often struggles with maintaining attention during individual sessions and reports struggling with ruminating and racing thoughts. Client shared some improvements with emotion regulation as she is beginning to gain awareness of her current response ot conflict. CLient would benefit from continued work on implementing thought stopping and stress management strategies in daily life. CLient reports communication as major barrier in [facility] [place] and is encouraged to follow-up with about scheduling a family session to review effective communication as a family unit. Time Stopped:: 09:51
--- NOTE | 2017-09-26 10:30 | BH.SGPN_ITS ---
Service Group Progress Note - Session Psychotherapy Session #1 Date Open:: 09/26/17 - 4 group members Time Started:: 09:05 Time Stopped:: 10:10 Targeted Problem #:: 1 Type of Group:: Process Goal of Group:: The goal of today's group was to check-in with client's mood, stressors, and positives, review homework and introduce topic for the day. Client Response/Progress/Benefit:: Client responded well to session, oversharing at times, but providing supportive statements. Client reports feeling hyped up but content today as she continues to face challenges at work , but feels glad to be in group. Client stated over the weekend she was very anxious after a recent medication change, but shared she coped using meditation and distraction. Client shared her new tattoo with the group and explained its importance to her mental health recovery. Client reported she has been irritable and anxious this week, mainly due to work issues. Client was receptive to therapist and group's ideas on ways to manage her emotions and focus on what is in client's control. Client shared I'm really bad at controlling my facial expressions and my anger. Client identified healthy coping skills to manage emotions such as taking breaks, deep breathing, seeking support, and positive self-talk. Client appeared to benefit from support provided by group. Progress noted in client's increased self-awareness and use of calming skills, but continues to report difficulty with emotional regulation and impulse control. Eye Contact:: Good Motor Activity:: Restless Appearance:: Neat Speech:: Rambling, Rapid Mood:: Anxious, Irritable Thoughts:: Linear, No evidence of hallucinations/delusions noted Staff Interventions:: Therapist used open-ended questions to elicit information about client's current stressors and mood state. Therapist was supportive by using active listening and reflection.
--- NOTE | 2017-09-26 14:51 | BH.SGPN_ITS ---
Service Group Progress Note - Session Psychotherapy Session #2 Date Open:: 09/26/17 Time Started:: 10:21 Time Stopped:: 11:15 Targeted Problem #:: 1 Type of Group:: Illness Management - 4 participants Goal of Group:: To increase understanding of self-esteem and the impact it can have on mental health. Another goal was to identify what factors impact self- esteem levels and what ways self-talk may be negatively impacting mental health and self-esteem levels. Client Response/Progress/Benefit:: Client responded well to session and was a positive participant throughout. She did well to actively engage in the discussion at hand and indicated connecting well with topic of self-esteem and negative self talk. Client worked with fellow participants in the finding self- esteem and identifying the various factors could be to both high and low levels of self-esteem. Client indicated that often times she is her own worst enemy and falls into negative self talk which impacts her feelings of worthlessness. Client indicated that often times perceives herself as not where the of love or making too many mistakes. She benefited from reflecting upon negative implications the self talk messages have on her overall mental health. Client displaying some progress in abilily to recognize the impact her own behaviors have had on maintaining negative emotions. Client recommended continued IOP to further client ability to challenge these negative self talk statements. Eye Contact:: Good Motor Activity:: Appropriate Appearance:: Casual Speech:: Appropriate Mood:: Dysthymic Affect:: Congruent Thoughts:: Linear, Logical, No evidence of hallucinations/delusions noted Staff Interventions:: Therapist facilitated group discussion about defining self -confidence and eliciting what clients are confident about. Therapist helped group members make connections between their own self-talk messages and the impacts can have on mental health and self-esteem levels. Therapist provided each group member with a handout in which members further explored personal self -talk statements and led the group in processing each statement. Therapist provided support by using active listening. Psychotherapy Session #3 Date Open:: 09/26/17 Time Started:: 11:27 Time Stopped:: 12:22 Targeted Problem #:: 1 Type of Group:: Functional Skills Development - 4 participants Goal of Group:: To increase self-awareness of view of self and identify how view impacts mental health functioning. Another purpose was to identify strategies for challenging negative self-talk and increasing awareness and understanding of personal rights Client Response/Progress/Benefit:: Client again did well to engage in the group discussion and was a positive support to fellow participants. She worked with the group on identifying various strategies for challenging negative thoughts and shared feeling as though she often struggles to keep from falling into black and white thinking patterns. Client appeared to benefit from reviewing and processing the personal Bill of Rights with the group and indicated that she had not thought about the things she is allowed to feel or think. CLient making progress in her ability to challenge current thinking patterns but would benefit from continued work in challenging dichotomous thinking. Eye Contact:: Good Motor Activity:: Appropriate Appearance:: Casual Speech:: Appropriate Mood:: Euthymic Affect:: Congruent Thoughts:: Linear, Logical, No evidence of hallucinations/delusions noted Staff Interventions:: Therapist facilitated a discussion regarding consequences of not challenging negative self-talk and aided participants in identifying strategies to challenge and replace negative self-talk messages. Therapist provided a Personal Bill of Rights handout and worked with the group process each statement and identify ways in which these statements could be used to promote positive self-talk and improve overall self-esteem levels.
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
--- NOTE | 2017-09-27 14:56 | BH.SGPN ---
Service Group Progress Note - Session Psychotherapy Session #2 Date Open:: 09/27/17 Time Started:: 10:20 Time Stopped:: 11:10 Targeted Problem #:: 1 Type of Group:: Illness Management Goal of Group:: To increase understanding of what strengths are and identify individual strengths. Client Response/Progress/Benefit:: Pt contributed positively to discussion and listened attentively to others. Pt reported she is easily able to identify her personal strengths, but she struggles with believing she has the strength when she isn't perfect. Pt shared if she sees her ability to sign as a strength, but then messes up a sign then she will start to beat myself up and discount the strength. Pt identified a barrier to her recognizing and utilizing her strengths would be distorted thinking; black and white thinking. Pt seemed to benefit from having to identify at least 5 individual strengths. Eye Contact:: Good Motor Activity:: Appropriate Appearance:: Casual Speech:: Appropriate Mood:: Depressed Affect:: Congruent Thoughts:: Linear, Logical, No evidence of hallucinations/delusions noted Staff Interventions:: Therapist facilitated discussion about what are strengths and assisted group members in identifying examples of strengths. Therapist led an activity in which group members were given the opportunity to identify five personal strengths. Therapist assisted clients in connecting the importance of recognizing personal strengths. Psychotherapy Session #3 Date Open:: 09/27/17 Time Started:: 11:20 Time Stopped:: 12:15 Targeted Problem #:: 1 Type of Group:: Functional Skills Development Goal of Group:: To identify what gets in their way of recognizing and utilizing their strengths and identifying ways to make strengths easier to access. Client Response/Progress/Benefit:: Pt listened attentively to others, engaged in activity and contributed to discussion. Pt able to identify the importance of recognizing her strengths because but not using her strengths she is keeping herself stuck. Pt identified combating negative thoughts as one strategy to increase use of strengths. Pt seemed to benefit from group brainstorm of various strategies to help increase awareness and utilization of strengths on consistent basis. Eye Contact:: Good Motor Activity:: Appropriate Appearance:: Casual Speech:: Appropriate Mood:: Depressed Affect:: Congruent Thoughts:: Linear, Logical, No evidence of hallucinations/delusions noted Staff Interventions:: Therapist utilized an activity as a tool in helping clients recognize the things that can get in their way from utilizing their strengths. Therapist processed the activity, helping others connect challenges that keep them from recognizing and using their strengths. Therapist provided support by using active listening and providing feedback.
--- NOTE | 2017-09-27 16:26 | BH.MTP ---
Master Treatment Plan - Patient Information Program Physician:: Martina Sanchez Primary Therapist:: Yvonne Simon - Estimated LOS Estimated LOS (in weeks):: 6
--- NOTE | 2017-10-01 15:52 | BH.SGPN ---
Service Group Progress Note - Session Psychotherapy Session #2 Date Open:: 10/01/17 Time Started:: 10:15 Time Stopped:: 11:15 Targeted Problem #:: 1 Type of Group:: Illness Management Goal of Group:: To increase understanding of communication and the various types of communication. Another goal was to increase understanding of impact communication styles can have. Client Response/Progress/Benefit:: Pt contributed to discussion and listened attentively to others. Pt reported can think of several situations in which communication doesn't really happen. Pt gave example when she asked her a question and he responded with a question often results in no communication actually occurring. Pt identified she most often uses aggressive communication which impacts her relationships negatively. Pt seemed to benefit from increasing awareness of the different communication styles as well as how her style of communication impacts her. Eye Contact:: Good Motor Activity:: Appropriate Appearance:: Casual Speech:: Appropriate Mood:: Euthymic Affect:: Congruent Thoughts:: Linear, Logical, No evidence of hallucinations/delusions noted Staff Interventions:: Therapist facilitated the group discussion about communication and explained the different types of communication. Therapist assisted group members in connecting the communication styles to the way they communicate and impact the communication style has on their relationships. Therapist provided support by using active listening and providing feedback. Psychotherapy Session #3 Date Open:: 10/01/17 Time Started:: 11:25 Time Stopped:: 12:15 Targeted Problem #:: 1 Type of Group:: Functional Skills Development Goal of Group:: To identify important components of communication and practice specific, clear communication. Client Response/Progress/Benefit:: Pt contributed to discussion and listened to others. Pt engaged nad active during group activity of rehearsing specific communication. Pt connected with importance of being specific and clear with her communication because it's easy for misinterpretations to occur. Pt seemed to benefit from rehearsing using clear and specific communication. Eye Contact:: Fair Motor Activity:: Appropriate Appearance:: Casual Speech:: Appropriate Mood:: Euthymic Affect:: Congruent Thoughts:: Linear, Logical, No evidence of hallucinations/delusions noted Staff Interventions:: Therapist led the discussion about important components of effective communication. Therapist provided each group member with the same three materials and broke the group into pairs. Therapist facilitated a communication activity in which the group members would have to achieve a goal by using effective communication to achieve such goal. Therapist processed the activity with the group.
--- NOTE | 2017-10-04 10:40 | BH.SGPN ---
Service Group Progress Note - Session Psychotherapy Session #1 Date Open:: 18 - 8 group members Time Started:: 09:05 Time Stopped:: 10:10 Targeted Problem #:: 1 Type of Group:: Process Goal of Group:: The goal of today's group was to check-in with clients and review homework from previous group session. Client Response/Progress/Benefit:: Client responded well to session, providing good insight to discussion. Client reports feeling calm today as she has been experiencing less anxiety, using more coping skills, and is communicating better with her . Client shared the negative self-talk group helped her realize how often she is negative which has helped client challenge her thoughts more. Client reported she continues to struggle with work, especially her boss and coworkers as client feels they do not treat her well. Client discussed ways she can manage her emotions and focus on what is in her control. Client appeared to benefit from identifying emotional regulation strategies. Progress noted in client's improved awareness and application of coping skills. Client to continue IOP to promote mood stability. Eye Contact:: Good Motor Activity:: Appropriate Appearance:: Neat Speech:: Appropriate Mood:: Euthymic Affect:: Full Thoughts:: Linear, No evidence of hallucinations/delusions noted Staff Interventions:: Therapist inquired about each group member?s previous night and current mood state. Therapist reviewed the group member?s homework from previous group session with the group, asking open ended questions to get more information.
--- NOTE | 2017-10-08 10:47 | BH.SGPN ---
Service Group Progress Note - Session Psychotherapy Session #1 Date Open:: 10/08/17 Time Started:: 09:10 Time Stopped:: 10:05 Targeted Problem #:: 1 Type of Group:: Process Goal of Group:: The goal of today's group was to check-in with client's mood, stressors, and positives, review homework and introduce topic for the day. Client Response/Progress/Benefit:: Pt reported she had a good long weekend. Shared she was able to get some gardening done and other chores around the house completed. Pt reported yesterday she had a difficult time being productive, feeling anxious and overwhelmed because didn't know where to start on her to do list. Pt reported she does better when she has someone tell her where to start, but yesterday she had no one home with her to guide her. Pt shared when her got home they went shopping and pt reported I discovered my is a bigger retail social and human services assistant than I am. She stated he encouraged her to buy the computer she wanted, despite pt sharing she had wanted to wait a little longer before purchasing the computer. Pt struggled with identifying other strategies that could benefit her in decision making when her is not around. Pt seemed to benefit from ideas and strategies shared by peers as to what can be helpful when feel overwhelmed with a to-do list. Pt progressing with use of thought challenge, however pt seems to struggle with utilizing her internal skills on consistent basis and tends to rely on external resources to help her manage symptoms and decisions. Eye Contact:: Good Motor Activity:: Appropriate Appearance:: Casual Speech:: Appropriate Mood:: Euthymic, Anxious Affect:: Congruent Thoughts:: Linear, Logical, No evidence of hallucinations/delusions noted Staff Interventions:: Therapist used open-ended questions to elicit information about client's current stressors and mood state. Therapist was supportive by using active listening and reflection.
--- NOTE | 2017-10-08 11:01 | BH.SGPN_ITS ---
Service Group Progress Note - Session Psychotherapy Session #1 Date Open:: 10/08/17 Time Started:: 09:10 Time Stopped:: 10:05 Targeted Problem #:: 1 Type of Group:: Process Goal of Group:: The goal of today's group was to check-in with client's mood, stressors, and positives, review homework and introduce topic for the day. Client Response/Progress/Benefit:: Pt reported she had a good long weekend. Shared she was able to get some gardening done and other chores around the house completed. Pt reported yesterday she had a difficult time being productive , feeling anxious and overwhelmed because didn't know where to start on her to do list. Pt reported she does better when she has someone tell her where to start, but yesterday she had no one home with her to guide her. Pt shared when her got home they went shopping and pt reported I discovered my is a bigger retail inspector electromechanical than I am. She stated he encouraged her to buy the computer she wanted, despite pt sharing she had wanted to wait a little longer before purchasing the computer. Pt struggled with identifying other strategies that could benefit her in decision making when her is not around. Pt seemed to benefit from ideas and strategies shared by peers as to what can be helpful when feel overwhelmed with a to-do list. Pt progressing with use of thought challenge, however pt seems to struggle with utilizing her internal skills on consistent basis and tends to rely on external resources to help her manage symptoms and decisions. Eye Contact:: Good Motor Activity:: Appropriate Appearance:: Casual Speech:: Appropriate Mood:: Euthymic, Anxious Affect:: Congruent Thoughts:: Linear, Logical, No evidence of hallucinations/delusions noted Staff Interventions:: Therapist used open-ended questions to elicit information about client's current stressors and mood state. Therapist was supportive by using active listening and reflection.
--- NOTE | 2017-10-08 13:17 | BH.SGPN_ITS ---
Service Group Progress Note - Session Psychotherapy Session #2 Date Open:: 10/08/17 Time Started:: 10:19 Time Stopped:: 11:14 Targeted Problem #:: 1 Type of Group:: Illness Management - 6 participants Goal of Group:: To increase understanding of a crisis and improve client?s awareness of personal warning signs before crisis. Client Response/Progress/Benefit:: Client was an active participant and did well to engage in session. She indicated connecting with the discussion reviewing how easily something small can escalate to a potential crisis point if stress is not managed appropriately. She disclosed struggling to ask for help at times or communicate when distressed. Client benefitted from connecting with others interpretations of crisis and indicated that for her crisis looks like an arrow because it seems to hit her over and over again. She didsplayed progress in her willingness to share personal experience and connect the group topic to her own life. Client recommended continued IOP to maintain stability, improve emotion regulation and healthy communication skills. Speech:: Appropriate Mood:: Euthymic Affect:: Congruent Thoughts:: Linear, Logical, No evidence of hallucinations/delusions noted Staff Interventions:: Therapist facilitated group discussion about defining a crisis and specifying various events that are considered a crisis. Therapist led the group in discussion about identifying personal warning signs before a crisis and importance of being aware of those signs. Therapist provided support by using active listening and providing feedback. Psychotherapy Session #3 Date Open:: 10/08/17 Time Started:: 11:21 Time Stopped:: 12:18 Targeted Problem #:: 1 Type of Group:: Functional Skills Development - 6 participants Goal of Group:: To increase awareness of warning signs before a crisis and identify interventions/coping strategies that would help clients proactively manage potential crises. Client Response/Progress/Benefit:: Client again did well to engage in group and responded positively to session. She indicated learning the hard way the importance of addressing and identifying mental health warning signs. Client indicated that at times she struggles to know what her warning signs are or what to do about them. CLient benefitted from reflecting upon personal warning signs and reviewing potential healthy means of coping with each to prevent further escalation. Client indicted that spending time with her or being creative are most beneficial when she is overwhelmed or stressed out. CLient displaying progress in her ability to begin addressing mental health triggers. She is recommended continued IOP to maintai stability and improve ability to communicate needs in times of stress. Eye Contact:: Good Motor Activity:: Appropriate Appearance:: Casual Speech:: Appropriate Mood:: Euthymic Affect:: Congruent Thoughts:: Linear, Logical, No evidence of hallucinations/delusions noted Staff Interventions:: Therapist led the group in discussion about identifying personal warning signs before a crisis and importance of being aware of those signs. Therapist provided the group with various types of items and asked each group member to select five items that represent something that would be helpful in managing their warning signs of a crisis. Therapist facilitated group processing of the crisis emergency kits each group member created. Therapist used open-ended questions to encourage elaboration of each item chosen for their kit. Therapist helped clients connect how the crisis emergency kit could help be a crisis prevention tool.
--- NOTE | 2017-10-10 10:38 | BH.SGPN_ITS ---
Service Group Progress Note - Session Psychotherapy Session #1 Date Open:: 18 - 6 group members Time Started:: 09:05 Time Stopped:: 10:20 Targeted Problem #:: 1 Type of Group:: Process Goal of Group:: The goal of today's group was to check-in with client's mood, stressors, and positives, and introduce topic for the day. Client Response/Progress/Benefit:: Client responded well to session, engaged throughout. Client tearful and reporting I'm dreading going into work today. Client shared yesterday was a rollercoaster at work as it was busy, people were upset, and client felt overwhelmed. Client shared she crashed and became snippy with a coworker, but later apologized. Client reflected on how she dealt with yesterday and stated, I think I did better than normal as client recognized her emotions and reached out to a positive support. Client stated, I just needed a hug which exactly what her support did while also providing supportive comments. Client shared she continues to struggle with managing anger , but has improved with taking breaks and reminding herself she cannot control others. Client shared she can cope with work today by talking with her positive co-worker, taking breaks, and reminding herself it is a short day. Client appeared to benefit from processing her emotions and identifying strategies to reduce anxiety. Progress noted in client's improved insight and internal locus of control, but can continue to benefit from emotional regulation skills. Eye Contact:: Good Motor Activity:: Appropriate Appearance:: Neat Speech:: Tangential, Rapid Mood:: Anxious, Irritable Affect:: Congruent - became tearful Thoughts:: Linear, Logical, No evidence of hallucinations/delusions noted Staff Interventions:: Therapist used open-ended questions to elicit information about client's current stressors and mood state. Therapist was supportive by using active listening and reflection.
--- NOTE | 2017-10-10 22:31 | BH.SGPN_ITS ---
Service Group Progress Note - Session Psychotherapy Session #2 Date Open:: 10/10/17 Time Started:: 10:24 Time Stopped:: 11:14 Targeted Problem #:: 1 Type of Group:: Illness Management - 7 participants Goal of Group:: To increase understanding of fear and explore the negative impact fear of failure can have on mental health and decision making. Client Response/Progress/Benefit:: Client responded well to session and was a positive participant throughout. She indicated connecting with the topic of fear of failure and engaged in the discussion reviewing how our definition of failure may impact mental health. CLient disclosed that for her failure is not being perfect or not meeting her own expectations. She appeared to benefit from challenging herself to contribute in the group activity in which participants were tasked with completing a challenge that presented several opportunities to fail. CLient displayed progress in identifying her need for permission or external validation for her to feel as if she had really succeeded. CLient recommended continued IOP to further work on challenging client perfecsionist thinking and increase client overall self-esteem levels. Eye Contact:: Good Motor Activity:: Appropriate Appearance:: Casual Speech:: Appropriate Mood:: Euthymic, Anxious Affect:: Congruent Thoughts:: Linear, Logical, No evidence of hallucinations/delusions noted Staff Interventions:: Therapist facilitated discussion about fear and impact fear of failure can have. Therapist led group in an experiential activity in which client?s would fail numerous times throughout, but were given the opportunity to try again. Therapist led the processing of the activity and assisted clients with connecting how fear of failure impacted their decision making during the activity. Psychotherapy Session #3 Date Open:: 10/10/17 Time Started:: 11:21 Time Stopped:: 12:17 Targeted Problem #:: 1 Type of Group:: Functional Skills Development - 7 articipants Goal of Group:: To identify the impact fear of failure has had on the group members lives and identify strategies to overcome fear of failure. Client Response/Progress/Benefit:: Client again did well to remain engaged in session and responded poitively throughout. She did well to continue to work collaberatively with fellow participants on completing the remainder of the gridlock activity. CLient indicated connecting with the various emotions surrounding failure as experienced in the activity as noted feeling both impatient and frustrated. She shared that prior to giving up on a personal goal she often experiences similar emotions. CLient benefited from reflecting upon ways in which the activity relates to daily life. She displayed progress in her ability to identify personal barriers and areas she is beginning to experience progress. CLient recommended continued IOP to further improve emotion regulation skills. Eye Contact:: Good Motor Activity:: Appropriate Appearance:: Casual Speech:: Appropriate Mood:: Euthymic Affect:: Congruent Thoughts:: Linear, Logical, No evidence of hallucinations/delusions noted Staff Interventions:: Therapist provided each group member with a worksheet to complete that asked questions about their experiences with fear of failure. Therapist led the processing of the worksheet, helping client?s connect how fear of failure has impacted them. Therapist provided support by using active listening and providing feedback.
== END 2017-10-10 23:59 ==
LOC: BHIOP 09:00
PROVIDERS: Visit Provider Psychiatry & Neurology Psychiatry
DX: F31.9 Bipolar disorder, unspecified (principal); F41.9 Anxiety disorder, unspecified; F60.3 Borderline personality disorder; Z79.899 Other long term (current) drug therapy
CPT/HCPCS: H0035; 90834; 90853

== ENCOUNTER 2017-10-11 08:48 | Outpatient (RCR) | payer BC, SELFPAY ==
--- NOTE | 2017-10-11 13:53 | BH.SGPN ---
Service Group Progress Note - Session Psychotherapy Session #2 Date Open:: 18 - 8 group members Time Started:: 10:10 Time Stopped:: 11:00 Targeted Problem #:: 1 Type of Group:: Illness Management Goal of Group:: To increase understanding of what stress is, identify current life stressors, and connect impact stressors have on mental health. Client Response/Progress/Benefit:: Client responded well to session, quiet, but participating when prompted. Client connected with the quote, stating, when you get too stressed you can't think. Client shared stress impacts her emotions, thoughts, and physical health. Client reported when she gets overly anxious she explodes and feels overwhelmed. Client reported her current stress jar is full, mostly due to work stress and dealing with depression. Client appeared to benefit from increasing awareness of how stress impacts one's mental well-being. Progress noted as shown by client's report of increased communication with , but can continue to benefit from increased mood stability. Eye Contact:: Good Motor Activity:: Appropriate Appearance:: Casual Speech:: Appropriate Mood:: Euthymic Affect:: Constricted Thoughts:: Linear, Logical, No evidence of hallucinations/delusions noted Staff Interventions:: Therapist facilitated discussion about stress. Therapist facilitated an activity in which group members were asked to identify various stressors they have in their life currently. Therapist instructed group members to indicate if certain stressors were larger than others. Therapist led processing of each members stress jar and helped them connect impact the stress has on their mental health.
--- NOTE | 2017-10-11 13:56 | BH.SGPN_ITS ---
Service Group Progress Note - Session Psychotherapy Session #2 Date Open:: 10/11/17 - 8 group members Time Started:: 10:10 Time Stopped:: 11:00 Targeted Problem #:: 1 Type of Group:: Illness Management Goal of Group:: To increase understanding of what stress is, identify current life stressors, and connect impact stressors have on mental health. Client Response/Progress/Benefit:: Client responded well to session, quiet, but participating when prompted. Client connected with the quote, stating, when you get too stressed you can't think. Client shared stress impacts her emotions , thoughts, and physical health. Client reported when she gets overly anxious she explodes and feels overwhelmed. Client reported her current stress jar is full, mostly due to work stress and dealing with depression. Client appeared to benefit from increasing awareness of how stress impacts one's mental well- being. Progress noted as shown by client's report of increased communication with , but can continue to benefit from increased mood stability. Eye Contact:: Good Motor Activity:: Appropriate Appearance:: Casual Speech:: Appropriate Mood:: Euthymic Affect:: Constricted Thoughts:: Linear, Logical, No evidence of hallucinations/delusions noted Staff Interventions:: Therapist facilitated discussion about stress. Therapist facilitated an activity in which group members were asked to identify various stressors they have in their life currently. Therapist instructed group members to indicate if certain stressors were larger than others. Therapist led processing of each member?s stress jar and helped them connect impact the stress has on their mental health.
--- NOTE | 2017-10-11 14:18 | BH.MDN ---
Multi-Disciplinary Note - Note 45-min Individual Time Started:: 11:20 Date: 10/11/17 Purpose of session/treatment goals addressed:: The purpose of this session was to review with Client treatment goal progress and use of effective communication strategies when talking with her . Another purpose was to discuss potential alterative coping skills and risk management strategies client may use when tempted to engage in unhealthy mean Eye Contact:: Good Motor Activity:: Appropriate Appearance:: Casual Speech:: Appropriate Mood:: Euthymic Affect:: Full Thoughts:: Linear, Logical, No evidence of hallucinations/delusions noted Staff Interventions:: Therapist asked open-ended questions to elicit additional information regarding Client current symptoms and implementation of healthy coping skills. Commended Client on areas of progress and used strengths-based approaches to continue promotion of healthy communication with supports. Discussed with Client the concept of harms reduction and reviewed alternative means for coping with depressive symptoms rather than engaging in impulsive spending. Client Response:: Client responded well to session and was open to discussing current progress and areas of continued struggle with this therapist. CLient shared that she had been recently struggling to stay caught up with documentation at work which had begun to impact her mood outside of the office. She shared feeling more irritable and stressed out lately and knew that if she did not adjust her approach that client would experience increased issues. 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 She noted that since having the discussion it has felt like a weight was lifted off of her. Client went on to share that things at home have been really good as she and her have been communicating more effectively recently and have had fewer fights. Client attributes this to taking the time to actually check-in with one another and discuss more than the mundane routine. Client indicated that she and her have also been spending more time together but is somewhat concerned as she indicated that when they are both feeling depressed they tend to do retail therapy and go shopping to make themselves feel better. Client shared recently purchasing a new laptop computer on one of these trips and that although she needed the computer she was feeling guilty about the purchase. She was upon to discussing strategies to curb spending. She shared trying to set limits before or not use a credit card but found she can just have the store look up her information onfile. CLient indicated being open to creating pro/con lists before making a purchase. Client indicates willingness to follow-up. Risks/Concerns:: Client denies suicidal ideation, plan, and intent as of 10/11/17. Client shared plans to spend time with her lul which demonstrates future orientation. Client additionally is aware of local crisis resources and is willing to utilize these if needed. Progress Toward Goals/Plan:: Client is making progress towards tx goals and indicates noticing a decrease in overall sx of depression. She shared feeling as though she has more energy to do things such as complete chores around the house and is communicating more positively with her . Client denies any emotional outbursts in the past week and indicates utiizing thought challenging strategies. She does however report continued struggles with sx of anxiety surrounding her employment abd is working to establish and implement a plan for managing workplace stressors. Client recommended continued IOP to improve use of healthy stress management skills. Time Stopped:: 11:57
--- NOTE | 2017-10-11 14:51 | BH.SGPN ---
Service Group Progress Note - Session Psychotherapy Session #1 Date Open:: 10/11/17 Time Started:: 09:08 Time Stopped:: 09:59 Targeted Problem #:: 1 Type of Group:: Process Goal of Group:: The goal of today's group was to check-in with client's mood, stressors, and positives, review homework and introduce topic for the day. Client Response/Progress/Benefit:: Client reported feeling anxious about going to work yesterday because she had a bad day on Saturday due to being behind and overwhelmed. Client reports she feels her administrators have a lot of resentment towards her for her taking time to begin the IOP program. 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 Client reported her supervisor fish bait processing was more receptive and supportive than she had predicted. Client reported ended up being a really good day and is feeling more relaxed this morning. Client seemed to benefit from expressing thoughts and feelings. Progress noted as evidenced by client using direct, clear communication with supervisor fish bait processing instead of being passive. Eye Contact:: Good Motor Activity:: Appropriate Appearance:: Casual Speech:: Appropriate Mood:: Anxious Affect:: Constricted Thoughts:: Linear, Logical, No evidence of hallucinations/delusions noted Staff Interventions:: Therapist used open-ended questions to elicit information about client's current stressors and mood state. Therapist was supportive by using active listening and reflection.
--- NOTE | 2017-10-15 15:49 | BH.SGPN ---
Service Group Progress Note - Session Psychotherapy Session #1 Date Open:: 10/15/17 Time Started:: 09:07 Time Stopped:: 10:12 Targeted Problem #:: 1 Type of Group:: Process Client Response/Progress/Benefit:: Client responded well to session and able to provide input and encouragement throughout the discussion. She shared having to take a second to step out and take a deep breathe at one point during the session as she was beginning to feel overwhelmed and anxious about work. Client discussed that it feels as if she is continuing to get more stressed out and further behind when she goes into the office each day. She explained that no one is able to help her however because it seems like everyone is behind as well. Client was receptive to the suggestion that she ask for a staff meeting to address potential burnout and brainstorm strategies for managing the increased workload. Client indicated that she has begun to recognize the stress at work impacting her daily life at home. She did well to work with participants on identifying ways she may reduce stress in the moment and prevent it from continuing to impact mood the remainder of the day. Recommended continued IOP to prevent decompensation and further improve consistency of implementation of emotion regulation skills. Eye Contact:: Good Motor Activity:: Restless Appearance:: Casual Speech:: Appropriate Mood:: Anxious, Depressed Affect:: Labile Thoughts:: Linear, Logical, No evidence of hallucinations/delusions noted Staff Interventions:: Therapist facilitated the group session by asking open ended questions that encouraged group members to discuss their weekend and current mood state. Assisted group members in the review of their homework from previous group session.
--- NOTE | 2017-10-18 17:25 | BH.SGPN ---
Service Group Progress Note - Session Psychotherapy Session #3 Date Open:: 10/18/17 - 8 group members Time Started:: 11:30 Time Stopped:: 12:25 Targeted Problem #:: 1 Type of Group:: Functional Skills Development Goal of Group:: The goal of this session was to create a 30 day action plan that provides small goals that work towards taking action on one thing they would like to take back control over. Client Response/Progress/Benefit:: Client responded well to session, active participant, but engaging in side conversations at times. Client created a 30-day action plan to promote emotional wellness and take back control over her mental health. Client's goal for the next 30 days is no more negative self-talk and shoulding on myself. Client shared this plan will benefit client as she wants to gain more control over her self-esteem and improve her thinking. Client's steps included daily affirmations, challenging negative thoughts, and taking away negative self-talk by replacing it with self-compassionate phrases. Client appeared to benefit from identifying a 30-day goal that will improve her mental wellness. Progress noted as client reports increased mood stability and better emotional regulation, but continues to struggle with anger and challenging negative thinking. Eye Contact:: Fair Motor Activity:: Appropriate Appearance:: Casual Speech:: Appropriate Mood:: Irritable Affect:: Constricted Thoughts:: Linear, Logical, No evidence of hallucinations/delusions noted Staff Interventions:: Therapist provided materials and guidance to help clients create a 30 day action plan. Therapist provided support by giving feedback and using active listening.
--- NOTE | 2017-10-18 17:33 | BH.SGPN ---
Service Group Progress Note - Session Psychotherapy Session #1 Date Open:: 10/18/17 Time Started:: 09:04 Time Stopped:: 10:24 Targeted Problem #:: 1 Type of Group:: Process - 8 participants Goal of Group:: The goal of today's group was to check-in with client's mood, stressors, and positives, review homework and introduce topic for the day. Client Response/Progress/Benefit:: Client responded well to session and remained engaged throughout. She discussed feeling both proud and excited on this date as she had been able to successfully manage a difficult day at work and prevent the workplace stressors from impacting her mood that evening. CLient shared that she had been able to do so by challenging her negative thoughts and instead utilize the healthy coping skills she has learned. CLient went on to describe spending time grooming her dog which served as an emotional release and then walked to her mother's house. She indicated finally being able to observe areas of progress within herself. CLient benefited from the support and praise provided by the group as she shared her successes. She displayed progress in her ability to apply treatment interventions of thought challenging and reframing to her own life in order to better manage her emotions. CLient recommended continued IOP to maintain stability, increase consistency of skills used, and improve utilization of stress management skills within the workplace. Eye Contact:: Good Motor Activity:: Appropriate Appearance:: Casual Speech:: Appropriate Mood:: Euthymic Affect:: Bright, Congruent Thoughts:: Linear, Logical, No evidence of hallucinations/delusions noted Staff Interventions:: Therapist used open-ended questions to elicit information about client's current stressors and mood state. Therapist was supportive by using active listening and reflection.
--- NOTE | 2017-10-21 16:02 | BH.SGPN_ITS ---
Service Group Progress Note - Session Psychotherapy Session #2 Date Open:: 10/15/17 Time Started:: 10:17 Time Stopped:: 11:07 Targeted Problem #:: 1 Type of Group:: Illness Management Goal of Group:: The goal of group was to increase understanding of goals and goal setting and practice a method of goal setting. Client Response/Progress/Benefit:: Client contributed to discussion and listened attentively to others. Client reported setting goals is important because it gives her direction and a plan of what to do. Client identified goals to be motivating and can help get you unstuck from current situation. Client stated barriers to goal setting to include: fear of failure, apathy, and high expectations. Client seemed to benefit from learning about the SMART goal setting method. Eye Contact:: Fair Motor Activity:: Appropriate Appearance:: Casual Speech:: Appropriate Mood:: Euthymic, Irritable Affect:: Congruent Thoughts:: Linear, Logical, No evidence of hallucinations/delusions noted Staff Interventions:: Therapist facilitated group discussion about goals and goal setting. Therapist taught group the acronym SMART (Specific, Measurable, Achievable, Realistic, Timely) as a tool to help with goal setting. Therapist led the group in an activity to be used as a method of practicing goal setting. Therapist guided the group through the SMART acronym as group was participating in activity. Therapist assisted group members with connecting the importance of making small, realistic goals. Psychotherapy Session #3 Date Open:: 10/15/17 Time Started:: 11:20 Time Stopped:: 12:15 Targeted Problem #:: 1 Type of Group:: Functional Skills Development Goal of Group:: The goal of group was to identify a goal for the weekend, explore the potential barriers to achieving that set goal, and identify strategies to overcome barriers. Client Response/Progress/Benefit:: Client active participant, contributed to discussion and listened attentively to others. Client identified her short-term goal to be: I will take my blood sugar levels two times a day. Client reported having this goal will benefit her by improving her health because currently she admitted she doesn?t manage her diabetes very well. Client shared obstacles to reaching her goal to include: feeling tired, forgot, painful test sugar, and apathy. Client identified possible solutions to the obstacles include: reminding self it only takes 30 seconds, set a reminder, remember importance of keeping track of blood sugar, and remind self can care for Eye Contact:: Fair Motor Activity:: Appropriate Appearance:: Casual Speech:: Appropriate Mood:: Euthymic Affect:: Congruent Thoughts:: Linear, Logical, No evidence of hallucinations/delusions noted Staff Interventions:: Therapist facilitated group discussion about importance of having a consistent sleep routine. Therapist led group in an activity in which the group members were asked to write down their current sleep routine. Therapist encouraged group members to make one small change to current sleep routine that would positively benefit their sleep quality.
--- NOTE | 2017-10-22 17:25 | BH.SGPN_ITS ---
Service Group Progress Note - Session Psychotherapy Session #3 Date Open:: 10/18/17 - 8 group members Time Started:: 11:30 Time Stopped:: 12:25 Targeted Problem #:: 1 Type of Group:: Functional Skills Development Goal of Group:: The goal of this session was to create a 30 day action plan that provides small goals that work towards taking action on one thing they would like to take back control over. Client Response/Progress/Benefit:: Client responded well to session, active participant, but engaging in side conversations at times. Client created a 30- day action plan to promote emotional wellness and take back control over her mental health. Client's goal for the next 30 days is no more negative self-talk and ?shoulding on myself.? Client shared this plan will benefit client as she wants to gain more control over her self-esteem and improve her thinking. Client 's steps included daily affirmations, challenging negative thoughts, and taking away negative self-talk by replacing it with self-compassionate phrases. Client appeared to benefit from identifying a 30-day goal that will improve her mental wellness. Progress noted as client reports increased mood stability and better emotional regulation, but continues to struggle with anger and challenging negative thinking. Eye Contact:: Fair Motor Activity:: Appropriate Appearance:: Casual Speech:: Appropriate Mood:: Irritable Affect:: Constricted Thoughts:: Linear, Logical, No evidence of hallucinations/delusions noted Staff Interventions:: Therapist provided materials and guidance to help clients create a 30 day action plan. Therapist provided support by giving feedback and using active listening.
--- NOTE | 2017-10-23 11:12 | BH.COMM ---
Communication Note - Communication with Client Communication Note: Therapist contacted client as she did not show for scheduled group session on this date. Client shared that she had just woken up today and did not think she could get ready in time to make it to group as client has a [address] Client feeling kind of manic and receiving little sleep over the past few days. Client indicates she has been managing her symptoms by trying to challenge negative thoughts and use her increased energy in healthy ways such as cleaning her house. Client open to discussing strategies for identifying and managing mood swings in next session scheduled for 10/24. Indicates an ability to maintain safety. Denies SI/HI, plan, or intent as of this correspondence on 10/22/17.
--- NOTE | 2017-10-24 13:41 | BH.SGPN_ITS ---
Service Group Progress Note - Session Psychotherapy Session #2 Date Open:: 10/24/17 - 6 group members Time Started:: 10:15 Time Stopped:: 11:07 Targeted Problem #:: 1 Type of Group:: Illness Management Goal of Group:: To increase self-awareness of current reality in regards to mental wellness and desired mental wellness. Client Response/Progress/Benefit:: Client responded well to session, participating when prompted. Client created a visual of her current mental health reality which depicted client climbing a mountain, but her support person is pulling her along. Client stated, ?I?m not at the bottom anymore? demonstrating progress, but client shared she continues to struggle with asking for help and feeling overwhelmed which keeps client stuck. Client reported her desired reality is climbing the same mountain, but alongside her support and being closer to the top. Client shared ?I?m getting there? and that her desired reality is not too far out of reach. Client appeared to benefit from gaining awareness of her current mental health reality. Progressed noted in client's reduced intensity of symptoms, but continues to struggle with mood stability and managing stress. Eye Contact:: Fair Motor Activity:: Appropriate Appearance:: Neat Speech:: Appropriate Mood:: Depressed Affect:: Flat Thoughts:: Linear, Logical, No evidence of hallucinations/delusions noted Staff Interventions:: Therapist facilitated group discussion about current reality in regards to mental health. Client provided each group member a piece of paper and asked them to draw their current reality. Therapist led the processing of each group member?s drawing. Therapist provided each group member with a second piece of paper and asked clients to draw desired mental wellness. Therapist processed each group member?s drawing, helping clients connect the two realities. Psychotherapy Session #3 Date Open:: 10/24/17 - 5 group members Time Started:: 11:17 Time Stopped:: 12:14 Targeted Problem #:: 1 Type of Group:: Functional Skills Development Goal of Group:: To identify obstacles in client?s path to mental wellness and identify strategies to help clients overcome these obstacles. Client Response/Progress/Benefit:: Client responded well to session, active participant and improved affect. Client identified personal barriers keeping client from achieving her desired reality such as exhaustion, guilt, feeling overwhelmed, and being embarrassed to ask and accept help. Client stated these barriers make her feel low and ?tired of being sick and tired.? Client participated in the activity and helped the group establish strategies to overcome barriers. Client?s strategies included ?thinking in shades of smith rather than black and white,? positive affirmations, and practicing asking for mental health help by doing it for other reasons first such as help with a task. Client appeared to benefit from gaining awareness of the barriers holding client back from reaching goals and identifying strategies to overcome these barriers. Client to continue IOP to promote mood stability and emotional regulation. Eye Contact:: Good Motor Activity:: Appropriate Appearance:: Neat Speech:: Appropriate Mood:: Euthymic Affect:: Congruent Thoughts:: Linear, Logical, No evidence of hallucinations/delusions noted Staff Interventions:: Therapist facilitated group discussion about obstacles and the hesitations of overcoming obstacles. Client led group in discussion about what obstacles they have control over and which obstacles are out of their control. Therapist helped clients connect how each obstacle is preventing them from achieving their desired reality. Therapist led an activity aimed to help clients use teamwork and problem-solving to establish strategies for overcoming obstacles. Therapist assisted clients in creating a list of various strategies to promote emotional wellness and overcome barriers. Therapist provided support by using reflective listening and providing feedback.
--- NOTE | 2017-10-25 10:50 | BH.SGPN ---
Service Group Progress Note - Session Psychotherapy Session #1 Date Open:: 10/25/17 - 6 group members Time Started:: 09:05 Time Stopped:: 10:00 Targeted Problem #:: 1 Type of Group:: Process Goal of Group:: The goal of today's group was to check-in with client's mood, stressors, and positives and introduce topic for the day. Client Response/Progress/Benefit:: Client responded well to session, receptive to feedback and providing supportive statements. Client reports feeling anxious today as she continues to experience challenges with coworkers at her job. Client shared yesterday she went into work and was told she is unreliable and not dependable. Client stated she has been looking at finding a new job, but it has been hard finding something in her field. Client reported she is also struggling to cope with her reduced paychecks from being on disability. Client stated, I had to ask for help from my and mom and that hurt. With therapist elicitation, client reflected on asking for help as a strength not a weakness. Client shared she is not sure what to do this weekend to reduce anxiety, but was receptive to ideas from the group such as going for a ride, calling a friend, and spending time outside. Client appeared to benefit from receiving coping strategies and emotional support. Progress noted as client reports overall reduced symptoms, but continues to struggle with emotional regulation. Eye Contact:: Fair Motor Activity:: Appropriate Appearance:: Neat Speech:: Appropriate Mood:: Anxious, Depressed Affect:: Labile - mildly- crying then smiling and laughing Thoughts:: Racing, No evidence of hallucinations/delusions noted Staff Interventions:: Therapist used open-ended questions to elicit information about client's current stressors and mood state. Therapist was supportive by using active listening and providing feedback.
--- NOTE | 2017-10-25 15:32 | BH.SGPN_ITS ---
Service Group Progress Note - Session Psychotherapy Session #1 Date Open:: 10/11/17 Time Started:: 09:08 Time Stopped:: 09:59 Targeted Problem #:: 1 Type of Group:: Process Goal of Group:: The goal of today's group was to check-in with client's mood, stressors, and positives, review homework and introduce topic for the day. Client Response/Progress/Benefit:: Client reported feeling anxious about going to work yesterday because she had a bad day on Saturday due to being behind and overwhelmed. Client reports she feels her administrators have a lot of resentment towards her for her taking time to begin the IOP program. 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 Client reported her shipyard supervisor was more receptive and supportive than she had predicted. Client reported ended up being a really good day and is feeling more relaxed this morning. Client seemed to benefit from expressing thoughts and feelings. Progress noted as evidenced by client using direct, clear communication with shipyard supervisor instead of being passive. Eye Contact:: Good Motor Activity:: Appropriate Appearance:: Casual Speech:: Appropriate Mood:: Anxious Affect:: Constricted Thoughts:: Linear, Logical, No evidence of hallucinations/delusions noted Staff Interventions:: Therapist used open-ended questions to elicit information about client's current stressors and mood state. Therapist was supportive by using active listening and reflection.
--- NOTE | 2017-10-27 14:28 | BH.MDN_ITS ---
Multi-Disciplinary Note - Note 45-min Individual Time Started:: 09:30 Date: 10/27/17 Purpose of session/treatment goals addressed:: The purpose of this session was to address Client concerns and increased anxiety and depressive symptoms this week related to additional stressors and difficulties with challenging negative thought patterns. Another purpose was to aid CLient in identifying potential warning signs and triggers for manic and depressive mood swings as well as coping skills and preventative factors CLient may use when identifying changes in mood. Eye Contact:: Good - tearful throughout Motor Activity:: Restless Appearance:: Casual Speech:: Appropriate Mood:: Anxious, Depressed Affect:: Labile Thoughts:: Linear, Other - dichotomous at times, No evidence of hallucinations/ delusions noted Staff Interventions:: Therapist used open ended questions in order to elicit information regarding client's current stressors, symptom and mood changes, and use of coping skills identified. Used reflective listening strategies and empathic responses as client discussed current frustrations and anxieties associated with financial stressors and shifts in mood. Provided psychoeducation on common symptoms associated with a kemar and assisted client in identifying personal symptoms experienced. Identified potential prevention and coping strategies for managing a manic of depressive mood swing. Provided worksheet on bipolar coping strategies. Client Response:: Client responded well to meeting with this therapist during pocess group as she expressed recent influx in symptoms of depression and anxiety. Client indicated that she attributes her change in mood in part to increased financial stress. Client was tearful as she went on to explain that her most recent paycheck had been a fraction of what she had expected as client has miscalculated her short term disability. Client indicated feeling guilty that she had been unable to cover her portion of the home finances and believes that she has let her down. She did well to work with this therapist on utilizing CBT thought challenging strategies to break down mistaken beliefs related to her idea that she is a failure for needing to ask for financial assistance from her . Client did well to recognize the evidence against these thoughts. She additionally shared increased anxiety related to believing that she may be going into a manic cycle. CLient identified that she had felt more energetic lately and is experiencing interrupted sleep. CLient and therapist worked to discern the differences between clients previous manic episodes and current symptoms. CLient expressed relief in sharing that she has not experienced increased irritability or impulsivity. Client appears to struggle with identifying her warning signs related to changes in mood and benefitted from the discussion reviewing common symptoms associated with kemar as well as discuss coping skills that have been helful for client in the past so that she may better manage and prevent symptom escalation in the future. Therapist provided client with a bipolar symptom and mood management worksheet to assist client with future changes in mood. Client agreed to discuss with and complete prior to next session. Risks/Concerns:: No risks or concerns at this time. Client denies active suicial or homicidal ideation, plan, or intent as of 10/24/17. Client future oriented and indicates an ability to maintain safety at this time. Is aware of and willing to access local crisis resources should she no longer for able to maintain safety. Progress Toward Goals/Plan:: Some progress. CLient has recently expressed an increase in depressive and anxiety related symptoms, however is doing well to process and manage these symptoms. She reports increased ability to communicate frustrations with supports in healthy ways tht have decreased verbal outbursts and improved relationships with supports. Client reports ongoing difficulties with black and white thinking though is showing increased ability to identify these thoughts and begin to challenge them. Client reports ongoing difficulties in identifying warning signs in the moment and is recommended continued IOP tx with focus on mood management and prevention skills. Time Stopped:: 10:14
--- NOTE | 2017-10-28 11:56 | BH.SGPN_ITS ---
Service Group Progress Note - Session Psychotherapy Session #2 Date Open:: 10/25/17 Time Started:: 10:12 Time Stopped:: 11:04 Targeted Problem #:: 1 Type of Group:: Illness Management - 6 participants. Goal of Group:: The goal of group was to increase understanding of the benefits social support provides in mental health wellness. Another goal was to increase self-awareness of the barriers that prevent client to seeking support or utilizing the support they have. Client Response/Progress/Benefit:: Client responded well to session and was active participant throughout. She did well to engage in conversation discussing the importance of social supports and ways in which they may act as a safety net at various times in our lives. Client shared that supports can be helpful in managing mental health symptoms as they may support us when struggling or help to calm us calm when frustrated. Client discussed having difficulties communicating with supports at times. She appeared to benefit from participating in the activity portion of the session in which clients were prompted to complete the task of building a structure without being able to see it. She displayed progress in her ability to connect difficulties in communicating needs during the activity with attempting to communicate her mental health symptoms and needs with her supports. Client commended continued IOP treatment in order to further promote consistent application of effective communication skills with supports and prevent decompensation prior to client return to work. Eye Contact:: Good Motor Activity:: Appropriate Appearance:: Casual Speech:: Appropriate Mood:: Euthymic, Anxious Affect:: Full Thoughts:: Linear, Logical, No evidence of hallucinations/delusions noted Staff Interventions:: Therapist led a group discussion about importance of social supports. Therapist facilitated an activity that required the group members to utilize support from each other. Therapist utilized the activity as a tool to connect the importance of accepting social support. Therapist provided support through reflective listening and giving feedback. Psychotherapy Session #3 Date Open:: 10/25/17 Time Started:: 11:12 Time Stopped:: 12:03 Targeted Problem #:: 1 Type of Group:: Functional Skills Development - 6 participants Goal of Group:: The goal of group was to increase understanding of the different types of social support. Another goal was to identify one type of support the client?s desire from their support system and brainstorm ways to best communicate these needs as well establish one small step towards achieving that support. Client Response/Progress/Benefit:: Client again did well to remain an active participant. She appeared to connect with topic of the different types of support we may need and potential barriers in communicating those support needs. Client indicated struggling most with asking for help in managing her finances as this makes her feel like a failure. She benefitted from brainstorming with the group potential steps she can take to commuicate with her supports what they can do to help client not only better manage finances but also challenge the negative connotations she associates with doing so. trying to see things from the other person's point of view in the activity. She displayed progress in her ability to list the unrealistic thoughts associated with seeing help as failure and also attempting to ask herself if she would want her to do the same thing if the roles were replaced. Client recommended continued IOP to further improve consistency of application of thought challenging skills and promotion of effective communication with supports. Eye Contact:: Good Motor Activity:: Appropriate Appearance:: Casual Speech:: Appropriate Mood:: Euthymic, Other - tearful when discussing current barriers and support needs. Affect:: Congruent Thoughts:: Linear, Logical, No evidence of hallucinations/delusions noted Staff Interventions:: Therapist facilitated group discussion on the different types of social support and importance of each type of support. A social support worksheet, was utilized to give clients direction in identifying which type of support they desired, how it will help, and identifying the first small step towards the desired support. Therapist provided homework for each group member to try and accomplish the one small step each group member identified on the worksheet.
--- NOTE | 2017-10-31 10:12 | BH.SGPN ---
Service Group Progress Note - Session Psychotherapy Session #1 Date Open:: 10/31/17 - 5 group members Time Started:: 09:03 Time Stopped:: 09:58 Targeted Problem #:: 1 Type of Group:: Process Goal of Group:: The goal of today's group was to check-in with client's mood, stressors, and positives, review homework and introduce topic for the day. Client Response/Progress/Benefit:: Client responded well to session, active participant. Client reported after having a challenging week last week, she had a good weekend. Client shared keeping busy helped client regulate her emotions. Client reports feeling positive today as she has a good outlook due to the nice weather and shorter work day. Client shared she continues to struggle with her boss telling client therapy has not been helpful, but client has been able to reframe the negativity and remind herself of the progress she has made. Client stated she had a bit of a setback Saturday as client had a panic attack during a stress test that led to an emergency room visit. Client reported the staff talked client through her panic which helped de-escalate client. Client shared I just couldn't get through it with my coping skills. Client processed what she gained from the experience stating, I have to remind myself I got through it and I don't give up. Client appeared to benefit from reflecting on her recent stressors and learning from it. Client progressing as shown by her report of increased communication and use of coping skills, but can continue to benefit from increased emotional regulation and mood stabiltiy. Eye Contact:: Good Motor Activity:: Appropriate Appearance:: Neat Speech:: Appropriate Mood:: Euthymic, Anxious Affect:: Congruent Thoughts:: Linear, Logical, No evidence of hallucinations/delusions noted Staff Interventions:: Therapist used open-ended questions to elicit information about client's current stressors and mood state. Therapist was supportive by using active listening and reflection.
--- NOTE | 2017-10-31 12:39 | BH.SGPN_ITS ---
Service Group Progress Note - Session Psychotherapy Session #2 Date Open:: 10/31/17 Time Started:: 10:07 Time Stopped:: 11:12 Targeted Problem #:: 1 Type of Group:: Illness Management - 6 participants Goal of Group:: The goal of group was to increase understanding of coping strategies and impact problems have on self. Another goal was to practice utilizing coping skills in the moment. Client Response/Progress/Benefit:: Client was receptive to group and indicated feeling as though the group topic of coping skills was being covered at a good time as client shared needing a refresher. She was able to discuss with the group the importance of having an awareness of the coping strategies we use to manage mental health symptoms. Client indicated that without awareness we may start or continue using unhealthy means of coping. CLient appeared to benefit from the activity portion as she challenged herself to take on the role of being blindfolded and work through discomfort of having to ask for help or guidance from other group participants. Client did well to communicate her needs with the group in a manner that let them know exactly what she needed from them and relate this back to commuicating ways client supports can promote her use of healthy coping. Client to discharge from IOP program tomorrow, 11/01, and is recommended continued work with outpatient providers on continued review of thought challenging strategies and promoting client regularly practice emotion regulation coping skills to continue maintaining current gains made. Eye Contact:: Good Motor Activity:: Appropriate Appearance:: Casual Speech:: Appropriate Mood:: Euthymic, Anxious Affect:: Congruent Thoughts:: Linear, Logical, No evidence of hallucinations/delusions noted Staff Interventions:: Therapist facilitated the group discussion about coping strategies. Therapist provided group members with folders and gave them the challenge to work together and build the tallest tower with the given supplies. Therapist utilized the activity as a tool to process what it feels like when dealing with problems and what strategies they used to cope throughout activity. Psychotherapy Session #3 Date Open:: 10/31/17 Time Started:: 11:19 Time Stopped:: 12:18 Targeted Problem #:: 1 Type of Group:: Functional Skills Development - 5 participants Goal of Group:: Goal was to increase client?s self-awareness on their use of coping strategies and increase repertoire of healthy coping strategies. Client Response/Progress/Benefit:: Client again did well to respond to the session and was an active participant throughout. She worked with fellow group members to identify the different categories of coping skills, pros/cons of eachs, and situations when they may be most helpful. Client provided a perosnal example of using coping in an unhealthy way and indicated she struggles with telling herself that going shopping is practicing self-love. Client benefitted from brainstorming potential healthy examples of practicing each kind of coping skill and creating a list oif various skills the work for her in each category. Client progress made in her ability to easily identify what skills would be helpful without needing additional assistance to do so. CLient has show significant progress while in IOP program and is scheduled to discharge tomorrow , 11/01. Eye Contact:: Good Motor Activity:: Appropriate Appearance:: Casual Speech:: Appropriate Mood:: Euthymic Affect:: Congruent Thoughts:: Linear, Logical, No evidence of hallucinations/delusions noted Staff Interventions:: Therapist facilitated discussion about the different types of coping skills. Therapist led group in an activity in which group members were asked to brainstorm coping strategies that fit in each coping skill category. Therapist reviewed each coping strategy with the group and led a discussion about whether the coping strategies identified were healthy or unhealthy. Therapist provided homework in which group members creating a coping skills menu and would practice two skills a day.
--- NOTE | 2017-11-01 09:19 | BH.AFTERPLAN ---
Aftercare Plan - Demographics Treatment End Date:: 11/01/17 Psychiatrist:: Anayeli Sanchez Psychiatrist Office #:: [phone] [facility] Therapist:: Yvonne Simon Therapist Phone #:: [phone] - Plan Details Progress/Aftercare Plan Details:: Client has made significant progress during IOP treatment and has worked towards completing her goals of improving use of healthy coping skills and regulating her emotions during times of distress. She has reported decreases in overall symptoms of depression and indicates improved mood stability and decreased anxiety. Since beginning the program, Client has increased self-awareness of warning signs, uses of distorted thinking patterns specifically dichotomous or black and white thinking., and unhealthy decision making. She has worked hard on applying skills to increase her ability to recognize and reframe negative and distorted thought patterns. CLient has done well to reframe negative thinking and shift focus to the positives. Client more consistently is able to utilize healthy coping skills and refrain from engaging in impulsive or self-destructive behaviors. Client has improved her ability to communicate with supports and openly discuss thoughts, feelings, and concerns in an effective and healthy way. Client could benefit from continued counseling with focus on continuing to improve willingness to reach out for help when needed, reinforcement of healthy skills, and identifying stress management strategies in the moment. It is also recommended client continue psychiatry services with outpatient psychiatrist, Dr. Hutton. Strategies for Success:: 1. Communicate, Communicate, Communicate!! Needs won't get met if others don't know what is going on. Remember - Asking for help DOES NOT make you weak or a failure. 2. Keep tracking your emotions and pay attention to Warning signs! You know yourself better than anyone else does and you know what helps address the small changes in mood and triggers before they turn into big ones! 3. Take time for you! Balance between work, family, and social life is stein. No one can function without balance remember it's okay to ask for help or take breaks. 4. Look for the shades of smith! Remember that a fixed mindset and stunt or prevent progress. Ask yourself How can I start to see this as a little more smith? 5. Continued use of healthy coping skills and set of ways to prevent yourself from falling back into old unhealthy patterns. What do I need to remind myself of or what limits do I need to set. 7. Keep working to focus on the positives from each day this helps rewire the brain to look at what is going well instead of focusing on what is not. REMEMBER: You can do this!! You are strong and have already come so far. - Appointments Appointments/Referrals to Other Services:: Client scheduled to follow up with psychiatry services and outpatient counselling services through [facility] [employer]. Client is not currently established with an individual counselor but is scheduled for an intake appointment with Candelaria Jones at [facility] on 12/03/17. CLient will see Dr. Hutton for ongoing medication management, next appointment is 12/16/17. Client additionally has been referred to the DBT Support Group held at [facility] for [employer] starting on 12/16/17 and is encouraged to reach out to her HR department for additional assistance with managing occupational stressors.
--- NOTE | 2017-11-01 10:35 | BH.IGGP_ITS ---
Aftercare Plan - Demographics Treatment End Date:: 11/01/17 Psychiatrist:: Anayeli Sanchez Psychiatrist Office #:: [phone] [facility] Therapist:: Yvonne Simon Therapist Phone #:: [phone] - Plan Details Progress/Aftercare Plan Details:: Client has made significant progress during IOP treatment and has worked towards completing her goals of improving use of healthy coping skills and regulating her emotions during times of distress. She has reported decreases in overall symptoms of depression and indicates improved mood stability and decreased anxiety. Since beginning the program, Client has increased self-awareness of warning signs, uses of distorted thinking patterns specifically dichotomous or black and white thinking., and unhealthy decision making. She has worked hard on applying skills to increase her ability to recognize and reframe negative and distorted thought patterns. CLient has done well to reframe negative thinking and shift focus to the positives. Client more consistently is able to utilize healthy coping skills and refrain from engaging in impulsive or self-destructive behaviors. Client has improved her ability to communicate with supports and openly discuss thoughts, feelings, and concerns in an effective and healthy way. Client could benefit from continued counseling with focus on continuing to improve willingness to reach out for help when needed, reinforcement of healthy skills, and identifying stress management strategies in the moment. It is also recommended client continue psychiatry services with outpatient psychiatrist, Dr. Hutton. Strategies for Success:: 1. Communicate, Communicate, Communicate!! Needs won't get met if others don't know what is going on. Remember - Asking for help DOES NOT make you weak or a failure. 2. Keep tracking your emotions and pay attention to Warning signs! You know yourself better than anyone else does and you know what helps ? address the small changes in mood and triggers before they turn into big ones! 3. Take time for you! Balance between work, family, and social life is stein. No one can function without balance ? remember it's okay to ask for help or take breaks. 4. Look for the shades of smith! Remember that a fixed mindset and stunt or prevent progress. Ask yourself How can I start to see this as a little more smith? 5. Continued use of healthy coping skills and set of ways to prevent yourself from falling back into old unhealthy patterns. What do I need to remind myself of or what limits do I need to set. 7. Keep working to focus on the positives from each day ? this helps rewire the brain to look at what is going well instead of focusing on what is not. REMEMBER: You can do this!! You are strong and have already come so far. - Appointments Appointments/Referrals to Other Services:: Client scheduled to follow up with psychiatry services and outpatient counselling services through [facility] [employer]. Client is not currently established with an individual counselor but is scheduled for an intake appointment with Candelaria Jones at [facility] on 12/03/17. CLient will see Dr. Hutton for ongoing medication management, next appointment is 12/16/17. Client additionally has been referred to the DBT Support Group held at [facility] for [employer] starting on and is encouraged to reach out to her HR department for additional assistance with managing occupational stressors.
--- NOTE | 2017-11-01 14:25 | BH.SGPN ---
Service Group Progress Note - Session Psychotherapy Session #2 Date Open:: 11/01/17 Time Started:: 10:05 Time Stopped:: 11:05 Targeted Problem #:: 1 Goal of Group:: To increase understanding of fixed vs growth mindset and the importance of looking at problems in different ways. Client Response/Progress/Benefit:: Client active participant AEB client contributing thoughts and ideas to group and listening to peers. Client connected with quote that she used to be quick to think of something as impossible which ultimately led her to not try to overcome the problem. Client reported she connected with the fixed vs growth mindset, recognizing when she has the impossible mindset then she is setting herself up for failure. Client seemed to benefit from increasing awareness of the impact her mindset can have on whether she moves forward or not. Eye Contact:: Good Motor Activity:: Appropriate Appearance:: Casual Speech:: Appropriate Mood:: Euthymic Affect:: Congruent Thoughts:: Linear, Logical, No evidence of hallucinations/delusions noted Staff Interventions:: Therapist facilitated discussion about fixed vs growth mindset. Therapist led group in an activity that would initially seem impossible to complete, but once group members looked at the problem in a different way they would be able to see alternative solutions. Therapist utilized the activity as a tool to discuss overcoming those situations that seem impossible to get through. Psychotherapy Session #3 Date Open:: 11/01/17 Time Started:: 11:15 Time Stopped:: 12:10 Targeted Problem #:: 1 Type of Group:: Functional Skills Development Goal of Group:: To identify personal barriers that get in the way of accomplishing tasks and identify internal and external resources to help overcome difficult situations. Client Response/Progress/Benefit:: Client engaged throughout group session AEB client sharing her thoughts and ideas as well as listening attentively to others. Client identified negative self talk and anxiety to be her personal obstacles that make it difficult to move forward. Client worked cooperatively with group members to identify various internal and external resources that can help one overcome various barriers. Client seemed to benefit from critically thinking about one of her obstacles and identifying 3 small steps she can take to overcome the identified obstacle. Client noted her progress since entered IOP given today was last day in IOP program. Eye Contact:: Good Motor Activity:: Appropriate Appearance:: Casual Speech:: Appropriate Mood:: Euthymic Affect:: Congruent Thoughts:: Linear, Logical, No evidence of hallucinations/delusions noted Staff Interventions:: Therapist facilitated discussion about internal and external resources and helped clients connect various internal resources they use. Therapist provided group members with a handout that gave information about various external resources the clients could utilize to get support. Therapist gave clients a worksheet in which they were asked to identify several barriers that get in their way to overcoming difficult situations. They also were asked to identify several internal and external resources they could use when needed.
--- NOTE | 2017-11-01 14:52 | BH.DS ---
Discharge Summary - Demographics Date of Admission:: 09/17/17 Discharge Date: 11/01/17 Presenting Problems at Admission:: Client is a 52 year old female originally presenting to Behavioral Health following referral by outpatient psychiatrist Dr. Missy Hutton for evaluation and treatment of mood symptoms or emotional dysregulation and anxiety. At time of admission CLient was placed in [facility] level of care due to reports of recent an influx in overwhelming anxiety and stress related to her occupation which resulted in panic attacks and decreased ability to complete job related tasks. CLient additonally shared increased symptoms associated with manic state in the past month. CLient described increased spending, lack of sleep, risky behaviors such as speeding or increased flirting, followed by worsening depression, suicidal ideation, and fatigue. Client denies active suicide plan or intent and indicates her son and scientology as protective factors. Discharge Diagnoses:: bipolar disorder F 31.9-mixed mood symptoms. Anxiety unspecified. Borderline personality disorder Reason for Discharge:: Client has successfully met treatment goals and no longer meets requirements for [facility] level of care. Client displayed significant decrease in symptoms of depression and anxiety as evidenced by a reduction in DSM Cross-Cutting Measurement score of 61 upon admission to 21 on discharge date. Client is planning to follow-up with on-going outpatient individual counseling services and medication management through [facility]. - Treatment Progress During Treatment & Response: Client has made significant progress during IOP treatment and has worked towards completing her goals of improving use of healthy coping skills and regulating her emotions during times of distress. She has reported decreases in overall symptoms of depression and indicates improved mood stability and decreased anxiety. Since beginning the program, Client has increased self-awareness of warning signs, uses of distorted thinking patterns specifically dichotomous or black and white thinking., and unhealthy decision making. She has worked hard on applying skills to increase her ability to recognize and reframe negative and distorted thought patterns. CLient did well to maintain regular ttendace and was an active group participant throughout her admission in the IOP program. She has done well to reframe negative thinking and shift focus to the positives. Client more consistently is able to utilize healthy coping skills and refrain from engaging in impulsive or self-destructive behaviors. Client has improved her ability to communicate with supports and openly discuss thoughts, feelings, and concerns in an effective and healthy way. Client could benefit from continued counseling with focus on continuing to improve willingness to reach out for help when needed, reinforcement of healthy skills, and identifying stress management strategies in the moment. Client has decreases in her overall sx of anxiety and depression as evidenced by a significant decline in the DSM Cross-Cutting Symptom Measure of 40 points. Client scored a 61 on intake and was measured at a score of 21 upon dischare with most significant point reduction in the areas of negative or intrusive thoughts and impulsive behaviors. It is also recommended client continue psychiatry services with outpatient psychiatrist, Dr. Hutton. Issues Still to be Addressed:: Client can benefit from continued work on identifying and addressing negative thinking patterns, specifically Client's tendency to personalize and utilize absolutes which increases negative self-talk and prevents CLient from seeking help from supports. Client can also benefit from continued work on maintaining healthy communication with supports, especially during times of decreased or irritable mood as she struggles with shutting down and then lashing out verbally with others. lient could benefit from continued counseling with focus on continuing to improve willingness to reach out for help when needed, reinforcement of healthy skills, and identifying stress management strategies in the moment. Discharge Recommendations/Instructions:: Client scheduled to follow up with psychiatry services and outpatient counselling services through [facility]. Client is not currently established with an individual counselor but is scheduled for an intake appointment with Candelaria Jones at [facility] on 12/03/17. CLient will see Dr. Hutton for ongoing medication management, next appointment is 12/16/17. Client additionally has been referred to the DBT Support Group held at [facility] starting on 12/16/17 and is encouraged to reach out to her HR department for additional assistance with managing occupational stressors. Discharge Handout: Complete Discharge Handout with client on aftercare options and continuity of care.
--- NOTE | 2017-11-01 15:17 | BH.DS_ITS ---
Addendum entered and electronically signed by Anayeli Sanchez MD 03/21/18 14:23: Discussed with treatment team agree with findings and plan. Original Note: Discharge Summary - Demographics Date of Admission:: 09/17/17 Discharge Date: 11/01/17 Presenting Problems at Admission:: Client is a 52 year old female originally presenting to Behavioral Health following referral by outpatient psychiatrist Dr. Missy Hutton for evaluation and treatment of mood symptoms or emotional dysregulation and anxiety. At time of admission CLient was placed in [facility] level of care due to reports of recent an influx in overwhelming anxiety and stress r elated to her occupation which resulted in panic attacks and decreased ability to complete job related tasks. CLient additonally shared increased symptoms associated with manic state in the past month. CLient described increased spending, lack of sleep, risky behaviors such as speeding or increased flirting, followed by worsening depression, suicidal ideation, and fatigue. Client denies active suicide plan or intent and indicates her son and yazidism as protective factors. Discharge Diagnoses:: bipolar disorder F 31.9-mixed mood symptoms. Anxiety unspecified. Borderline personality disorder Reason for Discharge:: Client has successfully met treatment goals and no longer meets requirements for [facility] level of care. Client displayed significant decrease in symptoms of depression and anxiety as evidenced by a reduction in DSM Cross- Cutting Measurement score of 61 upon admission to 21 on discharge date. Client is planning to follow-up with on-going outpatient individual counseling services and medication management through [facility]. - Treatment Progress During Treatment & Response: Client has made significant progress during IOP treatment and has worked towards completing her goals of improving use of healthy coping skills and regulating her emotions during times of distres s. She has reported decreases in overall symptoms of depression and indicates improved mood stability and decreased anxiety. Since beginning the program, Client has increased self-awareness of warning signs, uses of distorted thinking patterns specifically dichotomous or black and white thinking., and unhealthy decision making. She has worked hard on applying skills to increase her ability to recognize and reframe negative and distorted thought patterns. CLient did well to maintain regular ttendace and was an active group participant throughout her admission in the IOP program. She has done well to reframe negative thinking and shift focus to the positives. Client more consistently is able to utilize healthy coping skills and refrain from engaging in impulsive or self-destructive behaviors. Client has improved her ability to communicate with supports and openly discuss thoughts, feelings, and concerns in an effective and healthy way. Client could benefit from continued counseling with focus on continuing to improve willingness to reach out for help when needed, reinforcement of healthy skills, and identifying stress management strategies in the moment. Client has decreases in her overall sx of anxiety and depression as evidenced by a significant decline in the DSM Cross-Cutting Symptom Measure of 40 points. Client scored a 61 on intake and was measured at a score of 21 upon dischare with most significant point reduction in the areas of negative or intrusive thoughts and impulsive behaviors. It is also recommended client continue psychiatry services with outpatient psychiatrist, Dr. Hutton. Issues Still to be Addressed:: Client can benefit from continued work on identifying and addressing negative thinking patterns, specifically Client's tendency to personalize and utilize absolutes which increases negative self-talk and prevents CLient from seeking help from supports. Client can also benefit from continued work on maintaining healthy communication with supports, especially during times of decreased or irritable mood as she struggles with shutting down and then lashing out verbally with others. lient could benefit from continued counseling with focus on continuing to improve willingness to reach out for help when needed, reinforcement of healthy skills, and identifying stress management strategies in the moment. Discharge Recommendations/Instructions:: Client scheduled to follow up with psychiatry services and outpatient counselling services through [facility]. Client is not currently established with an individual counselor but is scheduled for an intake appointment with Candelaria Jones at [facility] on 12/03/17. CLient will see Dr. Hutton for ongoing medication management, next appointment is 12/16/17. Client additionally has been referred to the DBT Support Group held at [facility] starting on 12/16/17 and is encouraged to reach out to her HR department for additional assistance with managing occupational stressors. Discharge Handout: Complete Discharge Handout with client on aftercare options and continuity of care.
--- NOTE | 2017-11-01 15:17 | BH.SGPN ---
Service Group Progress Note - Session Psychotherapy Session #1 Date Open:: 11/01/17 Time Started:: 09:10 Time Stopped:: 10:00 Type of Group:: Process - 8 group members Goal of Group:: The goal of today's group was to check-in with client's mood, stressors, and positives, and review homework Client Response/Progress/Benefit:: Pt was an active participant in group discussion. Provided appropriate feedback. Pt reports that she has been feeling good for the past few days. Shared that she continues to improve and feels goal-directed. Shared some goals she wishes to complete this weekend. Shared with the group that today is her last day. Shared the group and topics which were most beneficial to her. Shared how learning cognitive distortions and way to recognize and challenge negative thoughts are beneficial Group praised her and provided encouragement. Significant progress noted in the program per pt report. Will be discharged today from [facility]. Eye Contact:: Good Motor Activity:: Appropriate Appearance:: Casual Speech:: Appropriate Mood:: Euthymic Affect:: Full Thoughts:: Linear, Logical, No evidence of hallucinations/delusions noted Staff Interventions:: Therapist used open-ended questions to elicit information about client's current stressors and mood state. Therapist was supportive by using active listening and reflection.
--- NOTE | 2017-11-01 15:17 | BH.MDN ---
Multi-Disciplinary Note - Note 30-min Individual Time Started:: 12:25 Date: 11/01/17 Purpose of session/treatment goals addressed:: Purpose of session was to review treatment progress, discuss strategies for client to maintain current gains and potential barriers to continue to work on managing, as well as solidify aftercare post discharge. Eye Contact:: Good Motor Activity:: Appropriate Appearance:: Casual Speech:: Appropriate Mood:: Euthymic Affect:: Congruent Thoughts:: Linear, Logical, No evidence of hallucinations/delusions noted Staff Interventions:: Therapist utilized open ended questions to elicit client's thoughts regarding treatment progress and strategies for maintaining gains made. Reviewed marlene Reed healthy skills she has found most beneficial since beginning IOP program and discussed strategies for managing barriers as well as potential warning signs to look out for. Therapist discussed current aftercare plans. Commended Client on progress made and provided support by validating emotions. Provided aftercare plan with progress, strategies for success, and appointment days for aftercare providers. Client Response:: Client reported she is feeling happy about her progress in treatment and has been able to see significant declines in mental health symptoms. She discussed feeling as though she is better equipped to manage her emotions during high stress times and has been able to improve in her ability to communicate her needs with her supports. CLient enjoying the IOP program and finding it most helpful with developing strategies for identifying and challenging distorted thinking patterns. CLient expressed I'm finally able to start seeing things in shades of smith rather than just the black or white. She shared she will miss all the support that was provided to her while in IOP tx but knows that she can go to her , the HR dept. Or her fluorescent lighting model maker if she begins to struggle with her mental health. Client shared completing a daily mood tracker and expressed continued plans to do so in order to keep track of any changes in functioning. SHe shared additionally setting small daily goals to keep her focus and productive in healthy ways. Client reported she is feeling able to perform at her job without a problem as she is more comfortable in reaching out to HR or her coworkers for support should she need to. Client agreeable to follow up with [facility] to establish an outpatient counselor and continue seeing her outpatient psychiatrist. Client agreeable with aftercare plan and is scheduled to begin DBT group at [facility] on 12/16/17. Risks/Concerns:: Denies any suicidal ideations, plan, or intent as of this date -11/01/17. No risks or concerns noted. Client future oriented and aware of crisis resources available. Progress Toward Goals/Plan:: Client has demonstrated progress with overall decrease in both depressive and emotion dysregulation symptoms. Client indicating ongoing attempts at challenging and reframing negative or distorted thought patterns as well as reaching out to supports during times of increased anxiety. Client is attempting to focus on the positives and use healthy skills learned, however struggles to consistently implement skills during times of high stress. 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 She is doing well to manage occupational stressors and communicate her needs with her line crew supervisor. Client denies any recent impulsive behaviors or reckless driving. Notes ongoing management of high risk spending by implementing strategies identified in tx. Plan is for client to discharge from [facility] level of care today and follow up with aftercare plan. Time Stopped:: 12:55
--- NOTE | 2017-11-01 15:41 | BH.MDN_ITS ---
Multi-Disciplinary Note - Note 30-min Individual Time Started:: 12:25 Date: 11/01/17 Purpose of session/treatment goals addressed:: Purpose of session was to review treatment progress, discuss strategies for client to maintain current gains and potential barriers to continue to work on managing, as well as solidify aftercare post discharge. Eye Contact:: Good Motor Activity:: Appropriate Appearance:: Casual Speech:: Appropriate Mood:: Euthymic Affect:: Congruent Thoughts:: Linear, Logical, No evidence of hallucinations/delusions noted Staff Interventions:: Therapist utilized open ended questions to elicit client' s thoughts regarding treatment progress and strategies for maintaining gains made. Reviewed marlene Reed healthy skills she has found most beneficial since beginning IOP program and discussed strategies for managing barriers as well as potential warning signs to look out for. Therapist discussed current aftercare plans. Commended Client on progress made and provided support by validating emotions. Provided aftercare plan with progress, strategies for success, and appointment days for aftercare providers. Client Response:: Client reported she is feeling happy about her progress in treatment and has been able to see significant declines in mental health symptoms. She discussed feeling as though she is better equipped to manage her emotions during high stress times and has been able to improve in her ability to communicate her needs with her supports. CLient enjoying the IOP program and finding it most helpful with developing strategies for identifying and challenging distorted thinking patterns. CLient expressed I'm finally able to start seeing things in shades of smith rather than just the black or white. She shared she will miss all the support that was provided to her while in IOP tx but knows that she can go to her , the HR dept. Or her supervisor cartography if she begins to struggle with her mental health. Client shared completing a daily mood tracker and expressed continued plans to do so in order to keep track of any changes in functioning. SHe shared additionally setting small daily goals to keep her focus and productive in healthy ways. Client reported she is feeling able to perform at her job without a problem as she is more comfortable in reaching out to HR or her coworkers for support should she need to. Client agreeable to follow up with [facility] to establish an outpatient counselor and continue seeing her outpatient psychiatrist. Client agreeable with aftercare plan and is scheduled to begin DBT group at [facility] on 12/16/17. Risks/Concerns:: Denies any suicidal ideations, plan, or intent as of this date -11/01/17. No risks or concerns noted. Client future oriented and aware of crisis resources available. Progress Toward Goals/Plan:: Client has demonstrated progress with overall decrease in both depressive and emotion dysregulation symptoms. Client indicating ongoing attempts at challenging and reframing negative or distorted thought patterns as well as reaching out to supports during times of increased anxiety. Client is attempting to focus on the positives and use healthy skills learned, however struggles to consistently implement skills during times of high stress. 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 She is doing well to manage occupational stressors and communicate her needs with her transportation supervisor. Client denies any recent impulsive behaviors or reckless driving. Notes ongoing management of high risk spending by implementing strategies identified in tx. Plan is for client to discharge from [facility] level of care today and follow up with aftercare plan. Time Stopped:: 12:55
== END 2017-11-01 14:00 | disposition home or self-care (01) ==
LOC: BHIOP 08:48
PROVIDERS: Visit Provider Psychiatry & Neurology Psychiatry
DX: F31.9 Bipolar disorder, unspecified (principal); F41.9 Anxiety disorder, unspecified; F60.3 Borderline personality disorder; Z79.899 Other long term (current) drug therapy
CPT/HCPCS: H0035; 90832; 90834; 90837; 90853

== ENCOUNTER 2021-11-27 08:00 | Outpatient (RCR) | payer MEDICAID, SELFPAY ==
--- NOTE | 2021-11-27 09:10 | BH.SGPN.GN ---
Behaviors/Verbalizations/Mental Status: [] Eye contact is good. Motor activity is appropriate. Appearance is casual. Speech is Appropriate. Mood is anxious. Affect is congruent. Thoughts are linear and logical. No evidence of psychosis. Reviewed daily check in sheet and no reports of suicidal ideations or intent. Client Response/Progress/Benefit: [] Pt participated at times during the group discussion on cognitive behavioral therapy techniques. Attentive. Shared with the group that today is her first day in IOP. Briefly introduced herself stating that she has Bipolar and has struggled with erratic mood swings in the past several months. 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 In order to help with this she began to overuse her anxiety medications. She entered IOP to re-learn healthy coping skills and to keep myself out of the hospital. Group emphasized, provided support and gave feedback/advice for her first day which was beneficial. Will continue in IOP to prevent decompensation, increase healthy coping skills and stabilize mood. Narrative Note: []
--- NOTE | 2021-11-27 10:10 | BH.SGPN.GN ---
Behaviors/Verbalizations/Mental Status: [] Client alert and oriented, casually dressed and groomed. Eye contact good. Motor activity appropriate. Speech within normal limits. Affect congruent, mood anxious. Thoughts linear, logical, no signs of hallucinations or delusions. Client Response/Progress/Benefit: []Client responded well to session with it being client's first day in program AEB contributing to discussion, taking notes, and listening attentively to others. Group discussed the benefits of managed anger and anger as a secondary emotion. Client shared past positives of anger helping her overcome obstacles. Client completed anger iceberg worksheet, with Identifying underlying emotions that contribute to anger including disappointment, discouragement, and hurt. Appeared to benefit from increased knowledge of the underlying emotions that impact anger and increased self-awareness of the internal and external consequences of anger. Will continue IOP tx to prevent decompensation, as well as increase the use of healthy coping skills and thought challenging to improve mood stability. Narrative Note: []
--- NOTE | 2021-11-27 11:15 | BH.SGPN.GN ---
Behaviors/Verbalizations/Mental Status: [] Client alert and oriented, neatly dressed and groomed. Eye contact good. Motor activity appropriate. Speech within normal limits. Affect constricted, mood euthymic/anxious. Thoughts linear, logical, no signs of hallucinations or delusions. Client Response/Progress/Benefit: [] Client was an engaged participant throughout group and activity AEB client providing input throughout discussion. Client contributed to the continued discussion of how people express anger as well as the consequences.of anger. Client reported her consequences anger as loss of personal and sentimental belongings. Group brainstormed with group healthy coping skills to help manage anger which included: mindfulness, deep breathing, exercising going outside, and practicing affirmation. Client selected looking at different person's perspective coping skill to manage anger. Client appeared to benefit from brainstorming with the group potential strategies to manage anger in healthy ways. Recommended continued IOP tx to increase positive self-talk, further decrease anxiety, and improve emotional regulation. Narrative Note: []
--- NOTE | 2021-11-28 09:00 | BH.SGPN.GN ---
Behaviors/Verbalizations/Mental Status: []Pt alert and oriented, casually dressed and groomed. Eye contact good, motor activity appropriate, speech WNL. Affect congruent-tearful, mood sad. Thoughts linear, logical, no signs of hallucinations or delusions. No risk reported on pt's daily symptom tracker. Client Response/Progress/Benefit: []Pt responded well to session, attentive and receptive to feedback. Pt reports feeling sad this morning as pt found out one of her best friends has from an OD. Pt was tearful and shared she meets with her outpatient therapist today which will be helpful. Pt stated she has been trying to avoid Facebook as this has been triggering anger as people are saying things about her friend. Pt stated yesterday she did a lot of positive things for her mental health including cooking and accomplishing all the things on her to-do list. Pt appeared to benefit from connecting with peers and gaining emotional support. Pt will continue IOP tx to promote use of healthy coping skills, improve daily functioning, and increase mood stability. Narrative Note: []
--- NOTE | 2021-11-28 11:15 | BH.SGPN.GN ---
Behaviors/Verbalizations/Mental Status: []Client present via telehealth: alert and oriented, casually dressed and appropriately groomed. Eye contact good. Motor activity appropriate.? Speech within normal limits. Affect congruent, mood anxious and euthymic. Thoughts linear and intact. no signs of delusions or hallucinations. Client Response/Progress/Benefit: [] Client responded well to session AEB listening attentively to peers, providing input, as well as taking notes throughout as observed via telehealth on zoom video. Client contributed throughout psychoeducation on different boundary setting styles and processing with group results of continuum. Reports connecting most with porous style of boundary setting, identifying difficulties with sharing too much information about herself. Participated in group discussion brainstorming on potential negatives and positives of different boundary setting styles. Group provided with [place] setting tips and homework to practice one new boundary setting skill. Seemed to benefit from increased awareness of how different boundary styles can impact mental health. Will continue IOP tx to increase consistent application of skills, increase self-care and anxiety management, and prevent decompensation. Narrative Note: []
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
--- NOTE | 2021-11-29 13:18 | BH.DR.ITP ---
Initial Treatment Plan Patient Information Visit Information: ADMISSION DATE: EXPECTED LOS: 4-6 weeks Problems/Symptoms Problem #1:: Mood instability Symptom:: Sadness, irritability, low motivation, biological disruption of sleep, low energy, decreased concentration, hopelessness Problem #2:: Anxiety Symptom:: Rumination, worry
--- NOTE | 2021-12-04 09:05 | BH.SGPN.GN ---
Behaviors/Verbalizations/Mental Status: [] Eye contact is good. Motor activity is appropriate. Appearance is casual. Speech is Appropriate. Mood is depressed. Affect is flat. Thoughts are linear and logical. No evidence of psychosis. Reviewed daily check in sheet and no reports of suicidal ideations or intent. Client Response/Progress/Benefit: [] Pt participated when prompted. Distracted at times. Appeared drowsy. Tearful while sharing. Updated the group that her friend had due to an unintentional OD last week and this has been impacting her mental health. Pt reports she often finds herself thinking about it. Myriad of emotions however mostly anger, anxiety, and sadness. I'm not handling it well. Increased anxiety, crying spells, and overall a tough weekend. 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 She reached out to support for a distraction I wanted to just get out of the house and go somewhere however this did not work out. Did not sleep well last night reporting that she woke up twice with panic attacks. Nothing is working. Admits that she is struggling to remember past coping skills. Group provided support and encouragement which was helpful. Normalized her grief and working through the stages of grief. 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 No progress noted. Pt's symptoms are decompensating due to recent loss. Will continue in IOP to maintain safety, stablize mood, and increase healthy coping. Narrative Note: []
--- NOTE | 2021-12-04 10:10 | BH.SGPN.GN ---
This psychotherapy group was provided via telehealth using two-way, real-time interactive telecommunication technology between the pts and the provider. The interactive telecommunication technology included audio and video. The pt was offered telemedicine as an option for care delivery during the COVID-19 pandemic and consented to this option. Pt location: [place] Provider located at [facility] Behaviors/Verbalizations/Mental Status: []Pt alert and oriented, casually dressed and groomed. Eye contact good. Motor activity appropriate. Speech within normal limits. Affect constricted, mood dysthymic. Thoughts linear, logical, no signs of hallucinations or delusions. Client Response/Progress/Benefit: []Pt connected with topic of Anxiety and participated throughout, providing input and taking notes. Attentive during psychoeducation on different anxiety disorders and participated throughout interactive discussion defining anxiety and identifying safety behaviors and physiological symptoms of anxiety. Pt?s safety behaviors included avoidance and increased sense of urgency. Physiological symptoms reported by patient included: increased heart rate, chills, and triggered fight or flight response. Benefited from increased awareness and insight on anxiety and its impact. Pt will continue IOP tx to improve emotional regulation skills, reduce intensity of symptoms, and improve daily functioning. Narrative Note: []
--- NOTE | 2021-12-04 11:10 | BH.SGPN.GN ---
This psychotherapy group was provided via telehealth using two-way, real-time interactive telecommunication technology between the pts and the provider.?The interactive telecommunication technology included audio and video.? ?The pt was offered telemedicine as an option for care delivery during the COVID-19 pandemic and consented to this option. ?Pt location: [place] ?Provider located at [facility] Behaviors/Verbalizations/Mental Status: []Pt alert and oriented, casually dressed and groomed. Eye contact good. Motor activity appropriate. Speech within normal limits. Affect constricted, mood anxious. Thoughts linear, logical, no signs of hallucinations or delusions. Client Response/Progress/Benefit: []Pt an active participant AEB providing input to discussion and sharing examples throughout. Reviewed how anxiety impacts thinking. Pt identified personal anxious thoughts such as rumination and trying to figure out the why. Attentive during psychoeducation on mindfulness coping skills and their impact on mental health wellness. The group worked together to brainstorm anxiety reduction strategies. Pt reported they will practice listening to soothing music to manage anxiety and improve self-confidence in coping. Pt seemed to benefit from increased repertoire of anxiety reduction skills. Pt will continue IOP tx to reduce intensity of anxiety, improve mood stability, and increase the use of healthy coping skills. Narrative Note: []
--- NOTE | 2021-12-05 10:05 | BH.SGPN.GN ---
Behaviors/Verbalizations/Mental Status: [] Client present via telehealth. Eye contact is good. Motor activity is appropriate. Appearance is casual and grooming tended to. Speech is Appropriate. Mood is euthymic. Affect is congruent. Thoughts are linear and logical. No evidence of psychosis Client Response/Progress/Benefit: [] Client receptive of session with being present via telehealth on zoom video. Client actively engaged throughout AEB taking notes and providing input and examples to discussion. Appeared to connect with group topic of cognitive distortions and the impact of thought patterns on mental health, coping behaviors, and relationships. Client shared how she feels her jumps to conclusions with her and provided examples in her life. Client shared perspective on how ANTs originate from. Client appeared to benefit from gaining insight on distorted thinking patterns and how this impacts overall mental health. Will continue IOP tx to further combat distorted thought patterns, increase self-compassion, and improve mood stability. Narrative Note: []
--- NOTE | 2021-12-05 11:10 | BH.SGPN.GN ---
Behaviors/Verbalizations/Mental Status: [] MSE via telehealth. Eye contact is good. Motor activity is appropriate. Appearance is casual and grooming tended to. Speech is Appropriate. Mood is euthymic. Affect is congruent. Thoughts are linear and logical. No evidence of psychosis Client Response/Progress/Benefit: [] Client present for group via telehealth with zoom video. Client responded well to session AEB input and examples during group activity. Group discussed and practiced methods of reframing cognitive distortions. Client participated in identifying cognitive distortions when examples were provided. Client discussed in group the different strategies to overcome the distortions by practicing reframing. Client identified cognitive distortion that they used most often was disqualifying the positives with giving example of struggling to accept compliments. Client made plan to identify and challenge thoughts that contribute to it as homework over the next couple of days. Will continue tx to further promote mood stability, increase utilizing of healthy coping skills, increase overall functioning, and prevent decompensation. Narrative Note: []
--- NOTE | 2021-12-05 11:52 | BH.MTP_ITS ---
[facility] Treatment Plan - Patient Information Program Physician:: Dr. Rissa Mejia Primary Therapist:: Franny BESS - Psychiatric Diagnoses Psychiatric Diagnoses:: Bipolar 1 disorder, most recent episode mixed, moderate (F31.62); Generalized anxiety disorder; Borderline personality disorder. Diagnosis Code(s):: F 31.62 - Estimated LOS Estimated LOS (in weeks):: 6 Problem/Goal #1 - Problem/Goal #1 Stated Goal:: Pt will increase mood stability, reduce negative thinking, and decrease anger outbursts. 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 Pt is limited support and was previously misusing her prescribed anxiety medication. Functional Impact: Pt is a 56-year-old female with a history of Bipolar Disorder, anxiety, and BPD. Pt was referred to IOP tx by her outpatient psychiatrist due to decompensation for the past 2-3 months with constant anxiety. Pt reports having several medication changes in the last few months and frequent counseling with limited benefit due to severity of symptoms. 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 At admission, pt endorsed mood instability, irritability, anger outbursts, anxiety, and depression. Pt reported increased sleep, low energy, low motivation, isolation, anhedonia, poor memory, and mood swings. Pt's symptoms are currently impacting her overall functioning and relationships. Goal Relevant Strengths/Supports: Pt has outpatient counseling and psychiatry through [id number]. Pt completed IOP in the past and found it beneficial. - Objectives Objective #1 Stated Objective: Pt will learn and utilize 2-3 healthy coping strategies to be tter manage mood symptoms as shown by reduced DSM-5 scores. Interventions: Through group and individual sessions, therapist will help pt identify triggers and warning signs of depression and emotional dysregulation including emotional, physical, and behavioral changes. Therapist will teach pt various coping skills to manage her symptoms and give pt tangible resources to use to regulate emotions. Therapist will help pt incorporate behavioral activation and assist pt in setting SMART goals. Discharge Criteria: Pt will have met this goal when she can report learning and using at least 2 coping skills to manage mood symptoms and show a reduction in DSM-5 symptoms. Target Date: 01/08/22 Review Date: 12/18/21 Status: open Objective #2 Stated Objective: Pt will increase ability to manage stressors and anxiety by gaining 2-3 distress tolerance skills. Interventions: Through group and individual therapy, pt will learn various coping skills to help manage stress and anxiety. Therapist will utilize DBT distress tolerance skills to increase awareness and give pt tools to more effectively manage anxiety. Therapist will provide psychoeducation on emotional regulation and help pt identify unhealthy coping skills he wants to change. Discharge Criteria: Pt will have accomplished this goal when can report improved ability to manage stressors and identify at least 2 distress tolerance skills. 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 Pt is limited support and was previously misusing her prescribed anxiety medication. Functional Impact: Pt is a 56-year-old female with a history of Bipolar Disorder, anxiety, and BPD. Pt was referred to IOP tx by her outpatient psychiatrist due to decompensation for the past 2-3 months with constant anxiety. Pt reports having several medication changes in the last few months and frequent counseling with limited benefit due to severity of symptoms. 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 At admission, pt endorsed mood instability, irritability, anger outbursts, anxiety, and depression. Pt reported increased sleep, low energy, low motivation, isolation, anhedonia, poor memory, and mood swings. Pt's symptoms are currently impacting her overall functioning and relationships. Goal Relevant Strengths/Supports: Pt has outpatient counseling and psychiatry through [id number]. Pt completed IOP in the past and found it beneficial. - Objectives Objective #1 Stated Objective: Pt will identify 2 triggers and 2 coping skills to use when pt experiences mood dysregulation and has increased urges to engage in unhelpful coping skills. Interventions: Through individual and group counseling pt will be provided with education on healthy coping skills to manage mood symptoms, impulse, and crisis behaviors. Therapist will provide information on healthy alternatives to emotion release. Individual therapist will teach client DBT techniques to increase emotional regulation and mindfulness. Therapist will also engage pt to use self- compassion while working to change behaviors. Discharge Criteria: pt will have accomplished this goal when pt can identify at least 2 triggers and 2 coping skills to increase mood stability and reduce unhealthy coping. Target Date: 01/08/22 Review Date: 12/18/21 Status: open Objective #2 Stated Objective: Pt will identify 2-3 anxiety/panic triggers and 2 coping skills to use when feeling anxious to manage anxiety as shown by reducing DSM-5 scores for anxiety. Interventions: Therapist will provide education on anxiety, avoidance behaviors, and maintenance cycles. Therapist will help pt explore personal symptoms and warning signs of anxiety. Therapist will teach pt coping skills to improve emotional regulation, mindfulness, and distress tolerance to help pt cope with anxiety in the moment. Discharge Criteria: Pt will have accomplished this goal when she can identify at least 2 triggers and report using 2 coping skills to manage anxiety. Additionall y, pt will have accomplished this goal AEB reduction of DSM-5 scores for anxiety. Target Date: 01/08/22 Review Date: 12/18/21 Status: open
--- NOTE | 2021-12-05 11:52 | BH.MDN ---
Multi-Disciplinary Note - Note 45-min Individual Time Started:: 09:03 Date: 12/05/21 Purpose of session/treatment goals addressed:: To gather information on pt's current stressors, symptoms, triggers, and tx goals. Another goal was to build rapport and provide emotional support. Symptoms/Behavior:: This counseling session was provided via telehealth using two-way, real-time interactive telecommunication technology between the pt and the clinician. The interactive telecommunication technology included audio and video. The pt was offered telehealth as an option for care delivery during the COVID-19 pandemic and consented to this option. Pt location: [place]. Provider located at [facility] Eye Contact:: Good Motor Activity:: Appropriate Appearance:: Casual Speech:: Appropriate Mood:: Anxious, Dysthymic Affect:: Constricted - tearful Thoughts:: Linear, Logical, No evidence of hallucinations/delusions noted Staff Interventions:: psychoeducation on: - anxiety, CBT techniques, rapport building, strengths perspective, treatment planning, taught coping skills - T.H.I.N.K Client Response:: Pt responded well to session, open to meeting with therapist. Pt shared she is doing a little bit better this week than last week, but pt continues to grieve the loss of her best friend. Gave pt time to process this and pt receptive to emotional support. Pt shared she feels sad but also resentful because she just made a big mistake. Pt reports her anxiety has increased lately but pt could not identify why. Through exploration, pt understood that it is likely her anxiety has increased due to the loss of her friend, caregiving, and general stressors. Discussed what pt currently does to cope with anxiety and pt shared she struggles to use logic when anxious. Pt stated being logical was how her friend that helped pt. Discussed some of things pt's friend did which included reminding pt to breath and focus on problem-solving. Therapist taught pt about T.H.I.N.K and encouraged pt to use this acronym when stress/anxiety increase. Pt also explored some of her anxiety triggers which are mostly around caregiving for her mother with dementia. Pt will continue IOP tx and will be in cognitive distortion group today which will be beneficial. Risks/Concerns:: Pt denies any suicidal ideations, plan, or intent as of 12/05/21. Pt denies any HI. Progress Toward Goals/Plan:: Pt started IOP tx last week and reports enjoying it so far, participated in the program several years ago and found it helpful. Pt currently endorses severe anxiety, irritability, and grief. Pt lost one of her best friends to overdose two weeks ago and pt was tearful throughout session from this. Pt reports her anxiety gets so severe that she cannot function and a few weeks ago her medication was not working. Pt will continue IOP tx to prevent decompensation, increase the use of healthy coping skills, and improve mood stability. Time Stopped:: 09:50
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
--- NOTE | 2021-12-07 09:05 | BH.SGPN.GN ---
This psychotherapy group was provided via telehealth using two-way, real-time interactive telecommunication technology between the pts and the provider.?The interactive telecommunication technology included audio and video.? ?The pt was offered telemedicine as an option for care delivery during the COVID-19 pandemic and consented to this option. ?Pt location: [place] ?Provider located at [facility] Behaviors/Verbalizations/Mental Status: []Eye contact is fair. Motor activity is appropriate. Appearance is casual. Speech is Appropriate. Mood is dysthymic. Affect is congruent. Thoughts are linear and logical. No evidence of psychosis. Reviewed daily check in sheet and no reports of suicidal ideations or intent. Client Response/Progress/Benefit: []Client responded well to session AEB client listening attentively to others, sharing thoughts and feelings and providing feedback to educational video group watched. Client reported mental health positive as took time yesterday to engage in self-care by getting a pedicure. Client reported she really needed time to relax and is happy she followed through with it. Client reported additional positive as being productive around the house each day. Client reported she also has noticed a decline in anxiety througout the day and anxiety at night has decreased in intensity. Client reported she was feeling frustrated yesterday because her mom keeps asking the same question to her everyday. Client reported she knows her mom can't help it because it's a part of dementia, but in the moment struggles with not getting frustrated. Client shared additional stressor is going to her best friend's this Saturday. Expressed feeling sad about this loss and having a hard time accepting her friend is gone. Appeared to benefit from peer support. Client to continue IOP to increase healthy coping skills, continue to utilize self-care and prevent decompensation. Narrative Note: []
--- NOTE | 2021-12-07 10:15 | BH.SGPN.GN ---
Behaviors/Verbalizations/Mental Status: [] Eye contact is good. Motor activity is appropriate. Appearance is disheveled. Speech is Appropriate. Mood is depressed. Affect is flat. Thoughts are linear and logical. No evidence of psychosis Client Response/Progress/Benefit: [] Pt was an active participant in group discussions. Attentive during psychoeducation. Participated in small groups with peers. Group worked together to define self-care which resulted in an interactive discussion on the topic. Group also worked together to identify the benefits to self-care which included; increased self-worth, decreased depression/anxiety/stress/anger, increased resilience, increased motivation, improved relationships, and prevention of crisis/burnout. Group also identified common myths associated with self-care such as; others come first, I have to push through everything, I'm not worthy of it, I don't deserve it, it takes too much time, I should be doing something more productive, its too expensive, and it's just personal hygiene. Group then into small groups and began to challenge or bust these myths. Benefited from increased awareness of self-care, it's benefits, and also practice challenging myths/obstacles to utilizing self-care. Will continue in IOP to maintain safety, increased healthy coping, and prevent decompensation. Narrative Note: []
--- NOTE | 2021-12-07 11:15 | BH.SGPN.GN ---
Behaviors/Verbalizations/Mental Status: []Pt alert and oriented, casually dressed and groomed. Eye contact good. Motor activity appropriate. Speech within normal limits. Affect constricted, mood agitated. Thoughts linear, logical, no signs of hallucinations or delusions. Client Response/Progress/Benefit: []Pt engaged participant AEB completing self-assessment worksheet and contributing input during discussion. Participated throughout group discussion on the various areas of self-care. Pt completed worksheet which identified current self-care practices and what self-care activities pt wants to start using. Pt selected spiritual self-care to begin practicing more consistently. Pt plans to do this by reading more islam texts and praying more often. Pt also wants to work on her physical self-care by taking short walks with her dog to get outside and reduce anxiety. Appeared to benefit from completing the self-care evaluation and gaining insights into current self-care practices, as well as identifying areas in which she would like to improve upon. Will continue IOP tx to increase self-awareness, reduce anxiety and irritability, and improve overall functioning. Narrative Note: []
== END 2021-12-10 23:59 ==
LOC: BHIOP 08:00
PROVIDERS: Referring Provider Psychiatry & Neurology Psychiatry; Visit Provider Psychiatry & Neurology Psychiatry
DX: F31.62 Bipolar disorder, current episode mixed, moderate (principal); F41.1 Generalized anxiety disorder; F60.3 Borderline personality disorder; F17.210 Nicotine dependence, cigarettes, uncomplicated; Z79.899 Other long term (current) drug therapy; I10 Essential (primary) hypertension; E78.00 Pure hypercholesterolemia, unspecified; E11.9 Type 2 diabetes mellitus without complications; Z79.84 Long term (current) use of oral hypoglycemic drugs; Z62.810 Personal history of physical and sexual abuse in childhood; Z62.811 Personal history of psychological abuse in childhood; M06.9 Rheumatoid arthritis, unspecified
CPT/HCPCS: 90792; H2012; H2020; S9480; 90834

== ENCOUNTER 2021-12-11 07:39 | Outpatient (RCR) | payer MEDICAID, SELFPAY ==
--- NOTE | 2021-12-11 09:05 | BH.SGPN.GN ---
This psychotherapy group was provided via telehealth using two-way, real-time interactive telecommunication technology between the pts and the provider.?The interactive telecommunication technology included audio and video.? ?The pt was offered telemedicine as an option for care delivery during the COVID-19 pandemic and consented to this option. ?Pt location: [place] ?Provider located at [facility] Behaviors/Verbalizations/Mental Status: []Pt alert and oriented, casually dressed and groomed. Eye contact good. Motor activity appropriate. Speech within normal limits. Affect congruent, mood calm Thoughts linear, logical, no signs of hallucinations or delusions. Reviewed pt?s symptom tracker, no risk for suicidal ideation, plan, or intent as of 12/11/21 Client Response/Progress/Benefit: []Pt responded well to session, attentive and providing supportive statements. Pt reports feeling calm this morning despite having difficult moments this weekend. Pt shared she attended the for her best friend and it went better than pt expected. Pt became tearful reflected on the service and shared that it was good to be around old friends. Pt slept most of the day yesterday which pt stated was a good thing for her. Pt appeared to benefit from reflecting on the support system she has. Pt will continue IOP tx to promote emotional regulation skills, reduce anxiety, and improve overall functioning. Narrative Note: []
--- NOTE | 2021-12-11 10:05 | BH.SGPN.GN ---
Behaviors/Verbalizations/Mental Status: [] MSE via telehealth. Client alert and oriented, neatly dressed and groomed. Eye contact good. Motor activity appropriate. Speech within normal limits. Affect constricted, mood euthymic. Thoughts linear, logical, no signs of hallucinations or delusions. Client Response/Progress/Benefit: [] Client was an active participant in group discussions. Attentive during psychoeducation on 4 types of conflict styles (Competing, Collaborating, Avoiding, and Accommodating). Worked with group to define conflict and identify how conflict is helpful. With peers identified barriers to addressing or managing conflict which included: fear of upsetting others, fear of the outcome, and lack of confidence. Client indicated she uses the competing style the most with stating how she feels it has prevented her from getting taken advantage of. Benefited from group due to increase insight and awareness of benefits to conflict, conflict styles, and obstacles to managing conflict. Will continue in IOP to prevent decompensation, utilize healthy coping skills, and increase self-esteem. Narrative Note: []
--- NOTE | 2021-12-11 11:07 | BH.SGPN.GN ---
Behaviors/Verbalizations/Mental Status: [] MSE via telehalth, Client alert and oriented, neatly dressed and groomed. Eye contact good. Motor activity appropriate. Speech within normal limits. Affect congruent, mood euthymic. Thoughts linear, logical, no signs of hallucinations or delusions. Client Response/Progress/Benefit: [] Client engaged in session via telehealth using zoom video AEB contributing to discussion and engaging in activity. Client did well to review current conflict style and its impact on mental health. Attentive during discussion on strategies for more effectively managing conflict in personal life. Client participated in activity and did well to be assertive and collaborating. Client given handout on fair fighting rules. Client identified wanting to improve communication during conflict by working on not yelling. Client shared how when she yells at her it causes him to yet and make initial conflict bigger. Appeared to benefit from gaining strategies to help client better manage conflict. Will continue IOP tx to reduce negative thinking patterns, improve self-worth, and increase self-care. Narrative Note: []
--- NOTE | 2021-12-12 09:05 | BH.SGPN.GN ---
Behaviors/Verbalizations/Mental Status: [] Eye contact is good. Motor activity is appropriate. Appearance is casual. Speech is Appropriate. Mood is euthymic. Affect is full. Thoughts are linear and logical. No evidence of psychosis. Reviewed daily check in sheet and no reports of suicidal ideations or intent. Client Response/Progress/Benefit: [] Pt was an active participant in group discussion. Attentive. Emotion for today is mellow. Mental health wins included completing self-care I choose to relax. Shared recent events in which she was able to manage conflict with support, set boundaries, and practice assertive communication. Also implemented anger mgmt skills. Progress noted per pt report. Benefited from group support, encouragement, and feedback. Will continue in IOP to prevent decompensation, increase healthy coping, and improve functioning. Narrative Note: []
--- NOTE | 2021-12-12 10:10 | BH.SGPN.GN ---
Behaviors/Verbalizations/Mental Status: []Client alert and oriented, casually dressed and groomed. Eye contact good. Motor activity appropriate. Speech within normal limits. Affect congruent, mood euthymic. Thoughts linear, logical, no signs of hallucinations or delusions. Client Response/Progress/Benefit: []Client was a semi-engaged participant AEB contributing to discussion at times, appeared to listen to others. Connected with the topic of pitfalls and listened to group discussion on barriers that prevent from choosing a healthier path to mental wellness. Group worked together to identify examples of personal pitfalls which included; resentment/anger, stigma, shutting down, low motivation, making excuses, denial, distortions, and unhealthy coping. Client did not share personal pitfalls that have inhibited progress in the past. Client benefited from group as she learned to better identify potential barriers to improving mental health symptoms. Client will continue IOP tx to challenge negative thought patterns, increase consistent use of healthy coping skills and prevent decompensation.
--- NOTE | 2021-12-14 09:10 | BH.SGPN.GN ---
Behaviors/Verbalizations/Mental Status: []Pt alert and oriented, casually dressed and groomed. Eye contact good. Motor activity appropriate. Speech within normal limits. Affect congruent, mood euthymic. Thoughts linear, logical, no signs of hallucinations or delusions. Reviewed pt?s symptom tracker, no risk for suicidal ideation, plan, or intent as of 12/14/21 Client Response/Progress/Benefit: []Pt responded well to session, providing support to peers. Pt reports feeling happy this morning as pt's dog has been behaving better which reduces stress and pt had a good conversation with her . Pt shared I learned more about him on the 3 hour car ride than 10 years of marriage. Pt reports she did a lot of initiating which was a positive as pt shared normally I'd just sit in silence. Pt also got to go to the celebration of life for her best friend who and pt reports this was helpful. Pt appeared to benefit from reflecting on application of coping skills. Pt will continue IOP tx to promote mood stability, improve anxiety management, and improve daily functioning. Narrative Note: []
--- NOTE | 2021-12-14 10:10 | BH.SGPN.GN ---
Behaviors/Verbalizations/Mental Status: [] Eye contact is good. Motor activity is appropriate. Appearance is casual. Speech is Appropriate. Mood is euthymic. Affect is full. Thoughts are linear and logical. No evidence of psychosis. Client Response/Progress/Benefit: [] Pt was an active participant in group discussions and activity. Attentive during psychoeducation. Pt along with peers were able to identify several negatives on the picture given to the group. Pt and peers also identified positives in the picture, however overall found less positives than negatives. Interactive discussion on the definition of perspective, how perspective is formed, and why perspective is important. Pt along with peers also identified that perspective can be impacted by; emotions, past experiences, mental health illness, upbringing, physical health, and age. Increased awareness on the connections between perspective and mental health. Will continue in IOP to prevent decompensation, decreased anxiety, and increased health coping skills. Narrative Note: []
--- NOTE | 2021-12-14 11:10 | BH.SGPN.GN ---
Behaviors/Verbalizations/Mental Status: []Pt alert and oriented, casually dressed and groomed. Eye contact good. Motor activity appropriate. Speech within normal limits. Affect constricted, mood anxious. Thoughts linear, logical, no signs of hallucinations or delusions. Client Response/Progress/Benefit: []Pt was attentive and contributed in small and larger group discussion. Pt completed strengths exploration worksheet and identified personal strengths to include: social awareness, intelligence, kindness, and gratitude. Pt shared that working to recognize these personal strengths more consistently will help improve pt?s mood and increase self-worth. Shared wanting to focus on fostering personal strengths by setting a reminder in her phone to reflect on strengths. Benefited from identifying personal strengths and strategies for enhancing use of identified strengths. Pt to continue IOP tx to promote mood stability, reduce anxiety, and improve daily functioning. Narrative Note: []
--- NOTE | 2021-12-14 14:31 | BH.MDN_ITS ---
Multi-Disciplinary Note - Note 30-min Individual Time Started:: 12:05 Date: 12/14/21 Purpose of session/treatment goals addressed:: To work on goal #2 of pt's tx plan. Another goal to rehearse skills in session. Eye Contact:: Good Motor Activity:: Appropriate Appearance:: Casual Speech:: Appropriate Mood:: Euthymic, Anxious Affect:: Congruent Thoughts:: Linear, Logical, No evidence of hallucinations/delusions noted Staff Interventions:: thought challenging, CBT techniques, mindfulness skills - practiced PMR, strengths perspective, other - emotional support Client Response:: Pt responded well to session, open to meeting with therapist. Pt shared the celebration of life for her friend went well and pt was glad to be around family and friends. Pt became tearful as pt reflected on the loss she has experienced. Pt tearful about the loss of functioning and memory in her mother and pt misses her mother remembering her. Receptive to emotional support and pt thought of ideas to help pt remember her mother as she was before. Pt stated her anxiety has significantly decreased from last week and the only trigger pt can think of is taking care of her mother. Pt stated walking her dog as been very helpful, but pt still struggles with managing her thinking when anxious. Pt receptive to rehearsing progressive muscle relaxation and stated it could be helpful to try. Pt also learned about dialectical thinking to help pt manage anxiety in the moment and increase self-confidence. Pt came up with a few dialectical statements and was receptive to therapist emailing pt additional statements. Risks/Concerns:: Pt denies any suicidal ideations, plan, or intent as of 12/14/21. Denies any HI. Denies any thoughts of . Progress Toward Goals/Plan:: Pt is making progress towards tx goals AEB pt's self-report of utilizing healthy skills at home more often. Pt has been going for walks with her dog and had effective communication with her . Pt continues to struggle with managing anxiety, specifically pt has a hard time slowing my thoughts. Pt still grieves the loss of her best friend and the functioning of her mother. Pt will continue IOP tx to reduce anxiety and i ncrease ability to regulate emotions. Time Stopped:: 12:35
--- NOTE | 2021-12-18 09:00 | BH.SGPN.GN ---
Behaviors/Verbalizations/Mental Status: [] Eye contact is good. Motor activity is appropriate. Appearance is casual. Speech is Appropriate. Mood is euthymic. Affect is full. Thoughts are linear and logical. No evidence of psychosis. Reviewed daily check in sheet and no reports of suicidal ideations or intent. Client Response/Progress/Benefit: [] Pt participated at times during the group discussion. Attentive. Emotion for today is thankful. Mental health wins include self-care. She getting out of the house more and taking a more concerted effort in care for herself as she cares for her mother with dementia. This has benefited her mental health and her engagement with her mother. She talked at length regarding what she did for self-care. Also has goal to get back into crafting which is another form of self-care which benefits her mental health. Progress noted as she is identifying health coping skills and avoiding self-medication and isolation. Benefited from group support, encouragement, and feedback. Will continue in IOP to prevent decompensation, increase healthy coping skills, and improve functioning. Narrative Note: []
--- NOTE | 2021-12-18 10:10 | BH.SGPN.GN ---
Behaviors/Verbalizations/Mental Status: [] MTE via telehealth. Client alert and oriented, neatly dressed and groomed. Eye contact good. Motor activity appropriate. Speech normal. Affect congruent, mood euthymic and anxious, Thoughts linear, logical, no signs of hallucinations or delusions. Client Response/Progress/Benefit: [ ] Client present via telehealth using zoom video.Client was engaged participant AEB client listening attentively to others and providing input in group. Attentive during psychoeducation on communication styles. Assisted group with identifying barriers of effective communication which included: ?being put down, cognitive distortions, and mood. Client identified they most often use assertive communication style, but always aggressive when communicating with . Client reports being aggressive causes their relationship to have increased issues. Benefited from increased awareness of different communication barriers, styles, and the importance of communicating effectively to improve mental wellness. Will continue IOP tx to improve emotional regulation skills, increase positive communication, and improve daily functioning. Narrative Note: []
--- NOTE | 2021-12-18 11:10 | BH.SGPN.GN ---
Behaviors/Verbalizations/Mental Status: [] MSE via telehealth. Client alert and oriented, casually dressed and groomed. Eye contact good. Motor activity appropriate. Speech within normal limits. Affect congruent, mood euthymic. Thoughts linear, logical, no signs of hallucinations or delusions Client Response/Progress/Benefit: []Client present via telehealth on zoom video and responded well to session AEB client listening attentively to others and providing input during group discussion on the pay offs and costs of the different communication styles. Client recognizes negative impact on relationships when she doesn't use healthy communication style. Client present for activity via telehealth, but could not participate hands on. Recognizes if group wasn't assertive in activity, they wouldn't have been successful. Attentive during psychoeducation on interpersonal DBT skill NEGRA. Client set a goal to work on describing in communicating with reporting that she feels the other person in communication always misunderstands what she is saying. Client seemed to benefit from increasing awareness of healthy strategies to improve communication. Client to continue IOP tx to improve daily mood, utalize coping skill, and increase self awareness. Narrative Note: []
--- NOTE | 2021-12-18 15:34 | BH.TPR ---
Treatment Plan Review Date of Admission:: 11/27/21 Date of Treatment Plan Review:: 12/18/21 Admitting Diagnoses:: Bipolar 1 disorder, most recent episode mixed, moderate (F31.62); Generalized anxiety disorder; Borderline personality disorder. Current Diagnoses:: Bipolar 1 disorder, most recent episode mixed, moderate (F31.62); Generalized anxiety disorder; Borderline personality disorder. Patient's Response to Treatment:: Pt has responded well to treatment AEB pt consistently attending IOP sessions and her reduction of DSM-5 scores since admission. Pt contributes well during individual sessions and actively contributes during group sessions. Pt applies coping skills outside of IOP and reports overall her reactions to stressors have improved. Status of Current Problems and Symptoms: Pt's symptoms of depression, anger, mood instability, and anxiety are resolving, but there are still issues ongoing. Pt has been relearning coping skills that have helped pt in the past. Pt is working on increasing emotional regulations skills to improve mood stability and reduce outbursts. 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 Problem #1 Problem Name:: Mood instability, anger, and negative thinking Status of Goals:: Objective 1- complete with ongoing work encouraged to maintain gains. Pt?s depression decreased by 67% since admission, anger by 100%, and kemar symptoms by 100%. Pt has been consistently taking medications and getting rest when needed. Objective 2-in progress. Pt has learned about her emotional urges and how to better manage stressors. Pt continues to improve upon conflict resolution and communication skills when under distress. Team Recommendations:: Treatment team encourages pt to continue working on conflict resolution skills to further improve pt's response to stressors within her marriage and associated with being a caregiver. Pt also recommended to continue working on self-care and delegating tasks when appropriate. Problem #2 Problem Name:: Anxiety, panic, and rumination Status of Goals:: Objective 1-complete with ongoing work encouraged. Pt has learned triggers to her anxiety and anger as well as calming skills pt can use to reduce symptoms in the moment. Pt also is working on taking breaks and using positive self-talk. Objective 2- complete with ongoing work encouraged. Pt?s anxiety decreased by 100% since admission, but pt still has a lot of stressors in her life. Pt has been using healthy coping skills more consistently, but pt reports there are times when anxiety ?comes out of nowhere? and it makes it difficult to cope in the moment. Team Recommendations:: Treatment tx recommends pt continue working on these goals to promote long-term maintenance of mood stability. It is also recommended that pt continue utilizing coping skills prior to taking her PRN anxiety medication which pt has been doing to help reduce the use of this med.
--- NOTE | 2021-12-19 09:00 | BH.SGPN.GN ---
Behaviors/Verbalizations/Mental Status: []Pt alert and oriented, casually dressed and groomed. Eye contact good. Motor activity appropriate. Speech within normal limits. Affect constricted, mood relaxed. Thoughts linear, logical, no signs of hallucinations or delusions. Reviewed pt?s symptom tracker, no risk for suicidal ideation, plan, or intent as of 12/19/21 Client Response/Progress/Benefit: []Pt responded well to session, attentive and participating. Pt reports feeling gloomy this morning, but did not share any specific triggers. Pt stated the weather may be contributing to her mood. Pt shared there were many mental health wins recently including getting several things done around the house and getting to spend time with her . Pt shared recently they have been talking more which is a positive change. Pt also used positive self-talk when feeling anxious over the weekend and pt was able to deescalate her anxiety. Pt appeared to benefit from reflecting on her application of skills. Pt will continue IOP tx to further reduce mood instability, increase emotional regulation skills, and promote gains. Narrative Note: []
--- NOTE | 2021-12-19 10:05 | BH.SGPN.GN ---
Behaviors/Verbalizations/Mental Status: [] MSE via telehealth. Client alert and oriented, casually dressed and groomed. Eye contact good. Motor activity appropriate. Speech within normal limits. Affect constricted, mood dysthymic. Thoughts linear, logical, no signs of hallucinations or delusions. Client Response/Progress/Benefit: [] Client was an active participant via telehealth using zoom video. Client participated in activity and gave input throughout group. Attentive during psychoeducation on coping skills, why people use unhealthy coping skills, and how to replace unhealthy coping skills. Client shared that risky behaviors can be a negative coping mechanism to distract from life stressors. Benefited from increased understanding of unhealthy coping skills and the need for developing healthy internal and external coping skills. Client will continue IOP tx to increase positive communication, utilize positive coping skills, and improve daily functioning. Narrative Note: []
--- NOTE | 2021-12-19 11:05 | BH.SGPN.GN ---
Behaviors/Verbalizations/Mental Status: [] MSE via telehealth. Client alert and oriented, neatly dressed and groomed. Eye contact fair to good. Motor activity appropriate. Speech within normal limits. Affect congruent, mood euthymic. Thoughts linear, logical, no signs of hallucinations or delusions. Client Response/Progress/Benefit: [] Client present in group via telehealth using zoom video. Responded well to session AEB being attentive to other group members and providing input and examples throughout. Group discussed the different categories of coping skills which included distraction. Client discussed the pros and cons of each coping category along with giving examples of coping mechanisms. Appeared to benefit from increasing repertoire of healthy coping skills. Client will continue IOP tx to improve daily functioning, reduce negative thinking, and increase application of healthy coping skills. Narrative Note: []
--- NOTE | 2021-12-21 10:12 | BH.MDN_ITS ---
Multi-Disciplinary Note - Note 30-min Individual Time Started:: 09:03 Date: 12/21/21 Purpose of session/treatment goals addressed:: To review pt's progress at review and to address any current stressors, barriers, and symptoms. Another goal was to discuss discharge. Eye Contact:: Good Motor Activity:: Appropriate Appearance:: Casual Speech:: Appropriate Mood:: Euthymic Affect:: Congruent Thoughts:: Linear, Logical, No evidence of hallucinations/delusions noted Staff Interventions:: CBT techniques, mindfulness skills, strengths perspective, reviewed DSM-5 Client Response:: Pt responded well to session, open to meeting with therapist. Pt shared she is doing well, but tired today. Pt stated overall she is feeling better and sees her symptoms reducing. Reviewed pt's DSM-5 scores and pt shared not being surprised, I can feel it. Pt reports using coping skills discussed last session and pt has been finding self-talk most helpful for anxiety. Pt stated this week anxiety has been much lower, so pt has not had to use the skills as much. Pt reported she and her got into an argument last night, but pt felt like she coped well. Pt shared she walked away without lashing out and pt plans to talk with him about it today. Pt stated their marriage is carlos and pt often feels like they should separate, but pt is not sure if she really wants this or not per her report. Pt is going [place] tomorrow for self-care and pt is looking forward to this. Reviewed coping skills pt can continue to use to manage anxiety, anger, and stress. Also discussed what unhealthy coping skills to refrain from using such as scrolling Facebook, lashing out, and dwelling. Pt feels with the progress she has made, but is on course to discharge on time in three weeks. Risks/Concerns:: Pt denies any suicidal ideations, plan, or intent. Pt denies any thoughts of . Progress Toward Goals/Plan:: Pt continues to make progress towards tx goals AEB her 83% reduction of overall symptoms on the DSM-5. Pt's depression has decreased by 67% since admission, anger by 100%, and anxiety by 100%. Pt reports a recent decrease in her lithium has also been helpful in reducing physical symp toms such as shaking. Pt continues to endorse stressors with caregiving for her mother and marital issues with her . Pt can benefit from IOP tx to promote gains, further improve emotional regulation skills, and increase mood stability. Time Stopped:: 09:30
--- NOTE | 2021-12-25 09:00 | BH.SGPN.GN ---
Behaviors/Verbalizations/Mental Status: []Eye contact is good. Motor activity is appropriate. Appearance is casual. Speech is Appropriate. Mood is dysthymic. Affect is congruent. Thoughts are linear and logical. No evidence of psychosis. Reviewed daily check in sheet and no reports of suicidal ideations or intent. Client Response/Progress/Benefit: []Client respond well to session as evidenced by listening attentively to others and sharing thoughts and feelings. Client stated she was having a hard time identifying mental health positives. Client reported she was able to take care of mom and get some chores completed around the house. Client minimized these as wins because she didn't get the bigger chores done like mowing her lawn. Client receptive to being challenged by therapist. Started to recognize she has a lot on her plate by taking care of her mom with dementia and having limited support. Client stated stressed about caring for her mom and had argument with her . Client reported getting frustrated/irritated with how often her mom repeats herself. Seemed to benefit from support from peers. Client to continue IOP to increase consistent use of healthy coping skills, challenge negative thinking and prevent decompensation. Narrative Note: []
--- NOTE | 2021-12-25 10:05 | BH.SGPN.GN ---
Behaviors/Verbalizations/Mental Status: []Pt alert and oriented, casually dressed and groomed. Eye contact good. Motor activity appropriate. Speech within normal limits. Affect congruent, mood euthymic. Thoughts linear, logical, no signs of hallucinations or delusions. Client Response/Progress/Benefit: []Pt was an active participant in group discussion. Attentive during psychoeducation and participated in group activity. Participated in interactive group discussion on internal and external barriers to mental health progress. Group identified examples of internal barriers as; negative thoughts, anxiety, cognitive distortions, and past experiences. Pt melanie a picture of their current reality which pt described a big corn field that needs mowed and it's all my responsibility and I don't ask for help. Pt stated this leads to pt feeling resentful and overwhelmed. Pt also melanie their desired reality which pt described as a field that's half mowed and I'm able to say what gets done gets done. Pt would also like to get to a place where her coping skills come more easily. Benefited from increased awareness of current barriers to progress as well as current/desired realities. Pt will continue IOP tx to promote mood stability, improve emotional regulation skills, and increase self-care. Narrative Note: []
--- NOTE | 2021-12-25 11:10 | BH.SGPN.GN ---
Behaviors/Verbalizations/Mental Status: [] Eye contact is good. Motor activity is appropriate. Appearance is casual. Speech is Appropriate. Mood is euthymic. Affect is full. Thoughts are linear and logical. No evidence of psychosis. Client Response/Progress/Benefit: [] Pt was an active participant in group discussions. Attentive during psychoeducation. Engaged in experiential group activity. Able to identify barriers to desired reality which include: not wanting to ask for help, unrealistic expectations, and fear of rejection. Participated as group brainstormed ideas on how to cope with internal barriers that can keep individuals stuck. Benefited from group by identifying obstacles and solutions to desired reality.? Will continue in IOP to prevent decompensation, reduce negative automatic thoughts, and improve functioning. Narrative Note: []
--- NOTE | 2021-12-26 09:05 | BH.SGPN.GN ---
Behaviors/Verbalizations/Mental Status: [] Eye contact is good. Motor activity is appropriate. Appearance is casual. Speech is Appropriate. Mood is euthymic. Affect is full. Thoughts are linear and logical. No evidence of psychosis. Reviewed daily check in sheet and no reports of suicidal ideations or intent. Client Response/Progress/Benefit: [] Pt participated at times during the group discussions. Attentive. Provided appropriate feedback. Emotion for today is calm. Mental health wins included implementing skills and thoughts reframing to not blow up after stressor yesterday. She felt disrespected which was a trigger however did not react impulsively. Another stressor is conflict with which has led to them not talking.She discussed the conflict briefly and while she is upset she believes that she has managed this more effectively than she would have in the past. She decreased some of her medications at the suggestion of psychiatrist which has helped minimize her tremors. Progress noted per pt report. Benefited from group support, encouragement, and feedback. Will continue in IOP to prevent decompensation, implement healthy coping skills, and improve functioning. Narrative Note: []
--- NOTE | 2021-12-26 11:17 | BH.MDN ---
Multi-Disciplinary Note - Note 30-min Individual Time Started:: 10:27 Date: 12/26/21 Purpose of session/treatment goals addressed:: To work on goal #1 of pt's treatment plan. Another goal was to discuss radical acceptance and rehearse boundary setting strategies. Eye Contact:: Good Motor Activity:: Appropriate Appearance:: Casual Speech:: Appropriate Mood:: Other - stressed Affect:: Congruent Thoughts:: Linear, Logical, No evidence of hallucinations/delusions noted Staff Interventions:: thought challenging, motivational interviewing, strengths perspective, other - Rehearsed boundary setting and communicating expectations. Client Response:: Pt responded well to session, open to meeting with therapist. Pt reports feeling fine today, but shared that she had an anger outburst and almost had a panic attack over the weekend. Pt was to go to the [place] by herself last Saturday, but when pt woke up her anxiety was overwhelming and pt did not go. Pt shared she and her have not talked since he canceled plans of going to the [place] with pt. Discussed communication and pt's desire for the relationship. Pt recognizes it is a turbulent relationship, but pt does not want to end the marriage. Pt does not feel like communicating needs with her will work, but pt was willing to give concrete boundaries to her . Discussed emotional regulation skills and awareness of warning signs. Pt able to see what contributed to her anger outburst towards her mother. Identified what pt can do in the future to prevent this and pt shared she could hang up a motivational quote to help pt remember to breathe and ground herself. Also discussed radical acceptance of the situation and self-talk statements pt can use when feeling overwhelmed. Risks/Concerns:: Pt denies any suicidal ideations, plan, or intent as of 12/26/21. Pt denies any HI. Progress Toward Goals/Plan:: Pt continues to report stressors with caregiving and within her marriage. Pt admits to having one anger outburst this past weekend, but pt has not had any since. Pt is progressing AEB her self-report of improved mood overall, however, pt continues to struggle with utilizing in the moment emotional regulation skills. Pt can identity what to do after the fact, but struggles with prevention strategies. Pt will continue IOP tx to promote emotional regulation skills, increase self-care, and improve ability to set boundaries. Time Stopped:: 11:00
--- NOTE | 2021-12-28 09:05 | BH.SGPN.GN ---
Behaviors/Verbalizations/Mental Status: [] Eye contact is good. Motor activity is appropriate. Appearance is casual. Speech is Appropriate. Mood is euthymic. Affect is full. Thoughts are linear and logical. No evidence of psychosis. Reviewed daily check in sheet and no reports of suicidal ideations or intent. Client Response/Progress/Benefit: [] Pt participated at times during the group discussion. Attentive. Provided appropriate feedback. Emotion for today is blessed. Mental health wins include completing more tasks and responsibilities, increased motivation, and managing her emotions effectively. She shared some examples of recent events and conlficts where she felt not important and shared how she implemented skills, set boundaries, and assertively communicated. Proud of herself for managing these stressors and emotions in healthy way rather than avoiding or self-medicating. She is hopeful. Progress noted per pt report. Will continue in IOP to maintain gains, prevent decompensation, and increase healthy coping skills. Narrative Note: []
--- NOTE | 2021-12-28 10:15 | BH.SGPN.GN ---
This psychotherapy group was provided via telehealth using two-way, real-time interactive telecommunication technology between the pts and the provider.?The interactive telecommunication technology included audio and video.? ?The pt was offered telemedicine as an option for care delivery during the COVID-19 pandemic and consented to this option. ?Pt location: [place] ?Provider located at [facility] Behaviors/Verbalizations/Mental Status: []Pt alert and oriented, casually dressed and groomed. Eye contact good. Motor activity appropriate. Speech within normal limits. Affect constricted, mood euthymic. Thoughts linear, logical, no signs of hallucinations or delusions Client Response/Progress/Benefit: []Pt responded well to session AEB taking notes throughout and listening attentively to others. Pt was attentive throughout group activity identifying famous individuals and how they overcame failure to be successful. Pt helped group identify how fear of failure can impact mental health and relationships. Pt personally identified it leads to not trying and avoidance. Pt participated in experiential activity, and pt did well to communicate to peers, giving them ideas and direction. Appeared to benefit from increased knowledge of fear of failure. Pt continues to struggle with proactively using coping skills, but pt is working on this. Will continue IOP tx to increase emotional regulation skills, improve assertive communication and boundary setting, and reinforce healthy coping skills. Narrative Note: []
--- NOTE | 2021-12-28 11:15 | BH.SGPN.GN ---
This psychotherapy group was provided via telehealth using two-way, real-time interactive telecommunication technology between the pts and the provider.?The interactive telecommunication technology included audio and video.? ?The pt was offered telemedicine as an option for care delivery during the COVID-19 pandemic and consented to this option. ?Pt location: [place] ?Provider located at [facility] Behaviors/Verbalizations/Mental Status: []Pt alert and oriented, casually dressed and groomed. Eye contact good. Motor activity appropriate. Speech within normal limits. Affect constricted, mood content. Thoughts linear, logical, no signs of hallucinations or delusions. Client Response/Progress/Benefit: []Pt responded somewhat well to session, engaged in the experiential activity but appeared to struggle with memory and self-doubt. 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 Pt completed fear of failure worksheet and was able to identify thoughts and behaviors that reinforce personal fear of failure including toxic people, all or nothing thinking, and unrealistic expectations. Pt participated in small group discussion regarding strategies to overcome fear of failure. Identified wanting to work on setting realistic goals by only putting 2-3 things on her to-do list to overcome fear of failure. Appeared to benefit from increased knowledge of strategies to combat fear of failure and gaining self-awareness. Pt will continue IOP tx to improve mood stability, reinforce healthy coping skills, and increase self-advocacy and boundary setting. Narrative Note: []
--- NOTE | 2022-01-01 10:41 | BH.COMM ---
Communication Note - Communication with Client Communication Note: Cancelled due to illness
--- NOTE | 2022-01-03 12:02 | PCM.BH.PN ---
Progress Note Progress Note: History of Present Illness/Interim History: [] The patient is a 56-year-old female with a history of bipolar disorder and possible borderline personality disorder who is seen by telehealth at the [facility] behavioral health IOP program. She is seen in follow-up and I saw the patient last about 1 month ago. She states that she is enjoying the IOP program despite mostly being by telehealth. She feels she is learning valuable skills to help her deal with her mental health issues and her ongoing stressors taking care of her mother with dementia in her mother's property. She states that she is feeling better and making good progress. Her lithium was decreased to 600 mg twice a day and this has caused her tremor to resolve. Lunesta was also discontinued She remains on Cogentin despite the fact that she complains of a terrible dry mouth which results in the patient getting up to drink water in the middle of the night. She denies any history of self-harm. She denies passive thoughts of , suicidal ideation, plan for suicide, homicidal ideation, hallucinations or delusions. She denies any manic symptoms. Current Psychiatric Medications: [] Mental Status Examination: [] The patient is a 56-year-old female who is seen by telehealth and appears older than stated age and casually dressed and groomed with mildly disheveled hair. She is alert and oriented to person place and time. She is cooperative during the interview. Eye contact is fair but difficult to evaluate completely due to telehealth. There is no psychomotor agitation or retardation. Mood is mildly depressed. Affect is less constricted than last time. Thought process is goal-directed and organized. Thought content: There is no evidence of passive thoughts of , plan for suicide, suicidal ideation, homicidal ideation, hallucinations, delusions or kemar. Reality testing is intact. Judgment is intact. Insight is fair. Impulsivity is moderate. Diagnoses: [] 1. Bipolar 1 disorder, most recent episode mixed, moderate (F31.62) 2. Generalized anxiety disorder 3. Borderline personality disorder 4. Primary support issues Plan: [] The patient will continue the IOP program at [facility] as the structure, support, education and group therapy will hopefully prevent worsening of the patient's symptoms which might require hospitalization. She felt safe during the interview and if it anytime she does not feel safe she will let us know or go to the emergency room. The risks, options, possible complications and side effects of the medications were again discussed with the patient and she understands and accepts these. The patient will continue her current medication regimen except she agrees to wean the Cogentin due to the severity of her dry mouth and the fact that there is no obvious indication for it right now. She agrees to decrease Cogentin to 0.5 mg p.o. twice a day for 1 week and then stop it. I will see the patient in follow-up in 2 weeks or as needed. She will continue to follow-up with her outpatient providers also.
--- NOTE | 2022-01-04 09:08 | BH.COMM ---
Communication Note - Communication with Client Communication Note: Pt cancelled all her group and individual sessions this week due to being sick. Because of this, pt unable to meet with individual therapist this week. Pt meets weekly with her outpatient therapist. Pt met via telehealth with Dr. Mejia yesterday and per pt's report, pt continues to be doing well and making progress. Pt is on track to discharge within the next two weeks.
--- NOTE | 2022-01-10 13:36 | BH.DS_ITS ---
Discharge Summary - Demographics Date of Admission:: 11/27/21 Discharge Date: 01/10/22 Presenting Problems at Admission:: Pt is a 56-year-old female with a history of Bipolar Disorder, anxiety, and BPD. Pt was referred to [facility] tx by her outpatient psychiatrist due to decompensation for the past 2-3 months with constant anxiety. Pt reported having several medication changes in the last few months and frequent counseling with limited benefit due to severity of symptoms. 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 At admission, pt endorsed mood instability, irritability, anger outbursts, anxiety, and depression. Pt reported increased sleep, low energy, low motivation, isolation, anhedonia, poor memory, and mood swings. Pt's symptoms were impacting her overall functioning and rel ationships. Discharge Diagnoses:: Bipolar 1 disorder, most recent episode mixed, moderate (F31.62); Generalized anxiety disorder; Borderline personality disorder. Reason for Discharge:: Pt voluntarily discharged from [facility] as pt feels she is doing much better and has reached the maximum benefit from [facility] level of care. Pt wants to continue with weekly counseling and outpatient psychiatry. - Treatment Progress During Treatment & Response: Pt did not complete the DSM-5 for discharge, but at review, pt's scores for depression, anxiety, and anger showed a significant reduction. At review, pt showed a 83% reduction of overall symptoms on the DSM-5. Pt's depression decreased by 67% since admission, anger by 100%, and anxiety by 100%. Pt was mostly consistent with attendance, but there were times pt left early or had to cancel. Pt was receptive to learning skills and reported benefitting from reviewing coping skills in individual sessions. Issues Still to be Addressed:: Pt can benefit from ongoing counseling to reinforce healthy coping skills to manage irritability, anxiety, and caregiver fatigue. Pt also has ongoing marital conflict that increases pt stress. Therapist has recommended a caregiver support group as well as potential grief counseling to help pt cope with her mother's dementia. Discharge Recommendations/Instructions:: Pt will follow up with her providers at [place] [id number] Hutton on 02/01/22 and her counselor Ashely Monroy on 01/12 07/04. Discharge Handout: Complete Discharge Handout with client on aftercare options and continuity of care.
== END 2022-01-10 13:52 | disposition home or self-care (01) ==
LOC: BHIOP 07:39
PROVIDERS: Referring Provider Psychiatry & Neurology Psychiatry; Visit Provider Psychiatry & Neurology Psychiatry
DX: F31.62 Bipolar disorder, current episode mixed, moderate (principal); F41.1 Generalized anxiety disorder; F60.3 Borderline personality disorder
CPT/HCPCS: 99214; H2012; H2020; S9480; 90832